=== PATIENT | female | born 1950 | race Caucasian/White ===

== ENCOUNTER 2018-04-22 11:36 | Outpatient (CLI) | payer MEDICARE, BC ==
[~2018-04-22] VITALS: Ht 167.6 cm; Wt 97.7 kg
--- NOTE | ~2018-04-22 | HEMODYNAMI ---
PATIENT:SUSANNE GUTIERREZ MEDICAL RECORD: [id number] : 46 LOCATION:[facility] ADMISSION DATE: 04/22/18 Generatedon:04/22/201814:33 Patient name: SUSANNE GUTIERREZ Patient #: [id number] SSN: : 1950 Date of study: 04/22/2018 Page: Of Hemodynamic Procedure Report Patient Data Patient Demographics Procedure consent was obtained First Name: SUSANNE Gender: Female Last Name: BRENDA : 1950 Patient #: [id number] Age: 67 year(s) Race: Unknown Additional ID: [id number] Contact details [address]: [address] [place] [address] [place] State: [place] City: [place] Zip code: [address] Admission Admission Data Admission Date: 04/22/2018 Admission Time: 11:36 Procedure Procedure Types Cath Procedure Diagnostic Procedure LHC LHC w/Coronaries Sedation Charges Moderate Sedation up to 30 minutes PCI Procedure Coronary Stent Coronary Stent Initial Procedure Description Procedure Date Procedure Date: 04/22/2018 Procedure Start Time: 13:49 Procedure End Time: 14:24 Procedure Staff Name Function Merritt Lau MD Performing Physician Judit Real RT Monitor Hiral Garcia RT Scrub Dave Harris RN Nurse Procedure Data Cath Procedure Fluoroscopy Diagnostic fluoroscopy Total fluoroscopy Time: time: 10.6 min 10.6 min Diagnostic fluoroscopy Total fluoroscopy dose: dose: 1775 mGy 1775 mGy Contrast Material Contrast Material Type Amount (ml) Isovue 300 151 Entry Location Entry Primary Successful Side Size Upsize Upsize Entry Closure Succes sful Closure Location (Fr) 1 (Fr) 2 (Fr) Remarks Device Remarks Femoral Right 5 Fr 6 Fr Exoseal artery Short Estimated blood loss: 5 ml Procedure Complications No complications Procedure Medications Medication Administration Route Dosage Oxygen etCO2 Nasal cannula 2 l/min Lidocaine 2% added to field 20 Heparin Flush Bag added to field 2 bags (1000units/500ml NS) 0.9% NaCl I.V. 100 ml/hr Versed I.V. 1 mg Fentanyl I.V. 50 mcg Versed I.V. 1 mg Fentanyl I.V. 50 mcg Fentanyl I.V. 50 mcg Heparin Bolus I.V. 01222 units Versed I.V. 1 mg Fentanyl I.V. 50 mcg Plavix P.O. 75 mg Hemodynamics Rest Heart Rate: 77 (bpm) Pressure Samples Time Site Value (mmHg) Purpose Heart Use Rate(bpm) 14:00 LV 123/9,5 Snapshot 71 Gradients Valve Time Site Site Mean SEP/DFP Peak To Heart Use 1 2 (mmHg) (sec/min) Peak Rate (mmHg) (bpm) Aortic 14:00 LV AO 73 Snapshots Pre Cath Intra NCS Post Cath Vital Signs Time Heart Resp SPO2 etCO2 NIBP (mmHg) Rhythm Pain Sedation Rate (ipm) (%) (mmHg) Status Level (bpm) 13:37:24 68 13 99 0 165/75(123) NSR 0 (11) 10(A) , No pain 13:41:50 68 27 95 38.9 155/75(126) NSR 0 (11) 10(A) , No pain 13:46:14 70 11 98 29.9 141/60(110) NSR 0 (11) 10(A) , No pain 13:50:32 74 13 98 125/75(92) NSR 0 (11) 10(A) , No pain 13:54:48 74 19 98 139/65(103) NSR 0 (11) 9(A) , No pain 13:59:06 72 27 97 120/62(87) NSR 0 (11) 9(A) , No pain 14:03:20 75 17 96 118/69(109) NSR 0 (11) 9(A) , No pain 14:08:28 76 20 97 118/61(85) NSR 0 (11) 9(A) , No pain 14:12:46 77 22 97 108/56(98) NSR 0 (11) 9(A) , No pain 14:17:51 84 25 100 150/66(107) NSR 0 (11) 9(A) , No pain 14:22:09 78 19 99 136/66(94) NSR 0 (11) 9(A) , No pain 14:27:59 82 20 100 146/72(119) NSR 0 (11) 10(A) , No pain Medications Time Medication Route Dose Verified Delivered Reason Note s Effectiveness by by 13:35:45 Oxygen etCO2 2 Merritt Buffie used for Nasal l/min Amaury Harris RN procedure cannula 13:35:52 Lidocaine 2% added 20ml Merritt Merritt for local to vial Amaury Lau MD anesthetic field 13:35:57 Heparin Flush added 2 bags Merritt Merritt used for Bag to Amaury Lau MD procedure (1000units/500ml field NS) 13:36:07 0.9% NaCl I.V. 100 Merritt Buffie Per physician ml/hr Amaury Harris RN 13:46:46 Versed I.V. 1 mg Merritt Buffie for sedation Amaury Harris RN 13:46:52 Fentanyl I.V. 50 mcg Merritt Buffie for sedation Amaury Harris RN 13:51:50 Versed I.V. 1 mg Merritt Buffie for sedation Amaury Harris RN 13:51:53 Fentanyl I.V. 50 mcg Merritt Buffie for sedation Amaury Harris RN 14:00:38 Fentanyl I.V. 50 mcg Merritt Buffie for sedation Amaury Harris RN 14:06:54 Heparin Bolus I.V. 10,000 Merritt Buffie for veri fied units Amaury Harris RN anticoagulation with dr lau 14:16:17 Versed I.V. 1 mg Merritt Buffie for sedation Amaury Harris RN 14:16:20 Fentanyl I.V. 50 mcg Merritt Buffie for sedation Amaury Harris RN 14:26:10 Plavix P.O. 75 mg Merritt Buffie for Amaury Harris RN antiplatelet therapy Procedure Log Time Note 13:28:34 Diagnostic Cath Status : Elective 13:28:50 Hiral Garcia RT(R) sent for patient. Start room use. 13:28:51 Time tracking: Regular hours (M-F 7:00 - 5:00) 13:28:56 Plan of Care:Hemodynamics will remain stable., Cardiac rhythm will remain stable., Comfort level will be maintained., Respiratory function will remain adequate., Patient/ family verbilizes understanding of procedure., Procedure tolerated without complication., Recovers from procedure without complications.. 13:29:50 Patient received from Pre/Post Procedure Room to [facility] 2 Alert and oriented. Tansferred to table in Supine position. 13:29:51 Warm blankets applied, and wilberto hugger turned on for patient comfort. 13:29:51 Correct patient and procedure confirmed by team. 13:29:52 Signed procedure consent form obtained from patient. 13:29:53 ECG and BP/O2 sat monitors applied to patient. 13:35:45 Oxygen 2 l/min etCO2 Nasal cannula was administered by Dave Harris RN; used for procedure; 13:35:52 Lidocaine 2% 20ml vial added to field was administered by Merritt Lau MD; for local anesthetic; 13:35:57 Heparin Flush Bag (1000units/500ml NS) 2 bags added to field was administered by Merritt Lau MD; used for procedure; 13:36:07 0.9% NaCl 100 ml/hr I.V. was administered by Dave Harris RN; Per physician; 13:36:10 Vital chart was started 13:39:24 Baseline sample Acquired. 13:39:44 Baseline sample Acquired. 13:39:49 Rhythm: sinus rhythm 13:39:50 Full Disclosure recording started 13:39:56 H&P Date Dictated: 04/22/2018 Within 30 days and on chart., H&P Addendum completed by physician on day of procedure. (MUST COMPLETE FOR ALL OUTPATIENTS). 13:39:58 Pre-procedure instructions explained to patient. 13:39:58 Pre-op teaching completed and patient verbalized understanding. 13:39:59 Family in waiting room. 13:40:01 Patient NPO since Midnight. 13:40:03 Is the patient allergic to Iodine/contrast media? No. 13:40:04 Was the patient premedicated? No 13:40:04 Is patient on blood thinner?No 13:40:29 Patient diabetic? Yes. 13:40:31 If diabetic: On Metformin? Yes 13:40:35 If on Metformin: Last Dose? 04/21/2018 13:40:38 Previous problem with sedation/anesthesia? No ? 13:40:40 Snore? Yes 13:40:40 Sleep apnea? No 13:40:41 Deviated septum? No 13:40:47 Opens mouth fully? Yes 13:40:48 Sticks out tongue? Yes 13:41:01 Airway obstruction? Yes bronchitis occasionally 13:41:19 Dentures? No ? 13:41:23 Pre procedure: right dorsailis pedis pulse 2+ Normal; easily identifiable; not easily obliterated 13:41:24 Pre procedure: left dorsailis pedis pulse 2+ Normal; easily identifiable; not easily obliterated 13:41:26 Patient pain scale 0/10 ?. 13:42:03 IV patent on arrival in left antecubital with 0.9% NaCl at [facility]. 13:42:05 Lab results completed and on chart. 13:42:10 Right Radial & Right Groin area was prepped with chlora-prep and draped in sterile fashion 13:42:11 Alarms reviewed by R. N. 13:42:11 Sharps counted by scrub and verified by R.N. 13:46:35 Physician arrived 13:46:36 --------ALL STOP TIME OUT------ 13:46:36 Final Timeout: patient, procedure, and site verified with staff and physician. All members of the team are in agreement. 13:46:38 Right Radial & Right Groin site verified by team. 13:46:41 Physical assessment completed. ASA score P 2 - A patient with mild systemic disease as per Merritt Lau MD. 13:46:44 Sedation plan: IV Moderate Sedation Medication:Versed, Fentanyl 13:46:46 Versed 1 mg I.V. was administered by Dave Harris RN; for sedation; 13:46:52 Fentanyl 50 mcg I.V. was administered by Dave Harris RN; for sedation; 13:46:52 Use device set Radial Dx or PCI 13:46:53 ACIST Syringe (88169) opened to sterile field. 13:46:54 Medline Cath Pack ([id number]) opened to sterile field. 13:46:54 Bag Decanter () opened to sterile field. 13:46:55 DIAGNOSTIC WIRE .035 260cm J wire (737803) opened to sterile field. 13:46:55 ACIST Hand Control (46351) opened to sterile field. 13:46:56 ACIST Manifold (65079) opened to sterile field. 13:46:56 Tegaderm 4 x 4 (1626W) opened to sterile field. 13:49:14 Procedure started. 13:49:28 Local anesthetic to right femoral artery with Lidocaine 2% by Merritt Lau MD.INITIAL ACCESS ONLY 13:49:40 A 5 Fr sheath was inserted into the Right Femoral artery 13:50:36 SHEATH 5Fr Prelude ([id number]) opened to sterile field. 13:50:44 DIAGNOSTIC Multipack 5Fr catheter set (YC7687) opened to sterile field. 13:51:04 5 Fr jl 4 guide catheter was inserted over the wire 13:51:50 Versed 1 mg I.V. was administered by Dave Harris RN; for sedation; 13:51:53 Fentanyl 50 mcg I.V. was administered by Dave Harris RN; for sedation; 13:53:02 LCA angiography performed. 13:53:05 Injector settings: Ml/sec: 3, Volume: 6, 13:55:14 Catheter removed. 13:55:21 5 Fr 3drc guide catheter was inserted over the wire 13:56:45 Catheter removed. unable to cannulate vessel. 13:57:30 GUIDE 5FR AL 1.0 catheter ([id number]) opened to sterile field. 13:58:23 RCA angiography performed. 13:58:26 Injector settings: Ml/sec: 3, Volume: 6, 13:58:40 Catheter removed. 13:59:09 5 Fr pigtail guide catheter was inserted over the wire 14:00:14 LV hemodynamics recorded. 14:00:15 LV gram done using VAZQUEZ 14:00:17 Injector settings: Ml/sec: 5, Volume: 15, 14:00:27 EF : 55 % 14:00:38 Fentanyl 50 mcg I.V. was administered by Dave Harris RN; for sedation; 14:00:40 Catheter removed. 14:02:47 TUBING High Pressure Extension Tubing (Amaury) ([id number]) opened to sterile field. 14:02:48 BMW 300cm [place] 2 J wire ([id number]) opened to sterile field. 14:02:49 INFLATOR Merit BasixCompak (QQ5646) opened to sterile field. 14:02:50 SHEATH 6Fr Prelude ([id number]) opened to sterile field. 14:04:35 GUIDE 6FR XBLAD 3.5 catheter ([id number]) opened to sterile field. 14:04:47 Sheath upsized to a 6 Fr Short. 14:04:55 6 Fr xblad 3.5 guide catheter was inserted over the wire 14:05:00 bmw wire advanced. 14:05:01 Wire advanced across lesion. 14:06:54 Heparin Bolus 10,000 units I.V. was administered by Dave Harris RN; for anticoagulation; verified with dr lau 14:09:23 Inflate balloon Inflation number: 1 A EMERGE OTW 2.5 x 20 balloon ([id number]) was prepped and advanced across the Prox LAD, then inflated to 13 JUAN JOSE for 0:10 (min:sec). 14:10:07 Inflation number: 2 The EMERGE OTW 2.5 x 20 balloon ([id number]) was reinflated across the Prox LAD, to 12 JUAN JOSE for 0:10 (min:sec). 14:11:35 Balloon removed over the wire. 14:14:39 The HEENA OTW 3.0 x 38 stent ([id number]) was advanced then removed because of failure to cross lesion 14:16:17 Versed 1 mg I.V. was administered by Dave Harris RN; for sedation; 14:16:20 Fentanyl 50 mcg I.V. was administered by Dave Harris RN; for sedation; 14:17:06 Inflation number: 3 The EMERGE OTW 2.5 x 20 balloon ([id number]) was reinflated across the Prox LAD, to 10 JUAN JOSE for 0:10 (min:sec). 14:17:11 Balloon removed over the wire. 14:20:08 Place stent Inflation Number: 4 A HEENA OTW 3.0 x 38 stent ([id number]) was prepped and advanced across the Prox LAD. The stent was deployed at 10 JUAN JOSE for 0:10 (min:sec). 14:22:05 Stent catheter was removed intact over wire. 14:22:06 Wire removed. 14:22:07 Guide catheter removed. 14:22:21 EXOSEAL 6Fr (EX600) opened to sterile field. 14:22:33 Sheath removed intact; hemostasis achieved with Exoseal to the Right Femoral artery. 14:22:35 Procedure ended.(Physican Out) 14:22:53 Fluoroscopy time 10.60 minutes. 14:22:59 Fluoroscopy dose: 1775 mGy 14:22:59 Flurop Dose total: 1775 14:23:29 Contrast amount:Isovue 300 151ml. 14:23:31 Sharps counted by scrub and verified by R.N. 14:23:33 Insertion/operative site no bleeding no hematoma. 14:23:36 Post-op/insertion site Right Femoral artery dressed using a 4 x 4 and Tegaderm. 14:23:38 Post right femoral artery:stable 14:23:40 Post Procedure Pulses reassessed and unchanged 14:23:42 Post procedure rhythm: unchanged. 14:23:45 Estimated blood loss: 5 ml 14:23:46 Post procedure instruction explained to patient.Patient verbalizes understanding. 14:23:46 Patient needs reinforcement of post procedure teaching. 14:24:05 Procedure type changed to Cath procedure, Diagnostic procedure, LHC, LHC w/Coronaries, Sedation Charges, Moderate Sedation up to 30 minutes, PCI procedure, Coronary Stent, Coronary Stent Initial 14:24:06 Procedure and supply charges have been captured, reviewed, submitted and are correct. 14:24:10 Procedure Complication : No complications 14:24:27 Vital chart was stopped 14:24:27 See physician's report for complete and final results. 14:24:34 Report given to Pre/Post Procedure Room. 14:24:36 Patient transfered to Pre/Post Procedure Room with Stretcher. 14:24:39 Procedure ended. 14:24:39 Full Disclosure recording stopped 14:24:56 ACC-PCI Only Patient was given prescriptions, or instructed by Merritt Lau MD to start/continue the following medications upon discharge: Plavix 14:24:57 End room use (Document Last) 14:26:10 Plavix 75 mg P.O. was administered by Dave Harris RN; for antiplatelet therapy; Intervention Summary Intervention Notes Time ActionType Lesion and Equipment Action# Pressure Duration Attributes Used 14:09:23 Inflate Prox LAD EMERGE OTW 1 13 00:10 balloon 2.5 x 20 balloon ([id number]) 14:10:07 Reinflate Prox LAD EMERGE OTW 2 12 00:10 balloon 2.5 x 20 balloon ([id number]) 14:14:39 Discard HEENA OTW 3.0 Stent x 38 stent ([id number]) 14:17:06 Reinflate Prox LAD EMERGE OTW 3 10 00:10 balloon 2.5 x 20 balloon ([id number]) 14:20:08 Place stent Prox LAD HEENA OTW 3.0 4 10 00:10 x 38 stent ([id number]) Device Usage Item Name Manufacture Quantity Catalog Number Hospital Part Current M inimal Lot# / Charge Number Stock Stock Serial# Code ACIST Syringe Acist 1 22231 851402 129303 710606 2 0 (19351) Medical Systems Inc Medline Cath Cardinal 1 [id number] 541612 12501 959107 5 Pack Health ([id number]) Bag Decanter Microtek 1 2001S 954958 83237 552121 5 (2001S) Medical Inc. DIAGNOSTIC St Ariel 1 772336 828516 209277 750299 3 0 WIRE .035 260cm J wire (939964) ACIST Hand Acist 1 59175 537074 004129 371779 5 Control Medical (81279) Systems Inc ACIST Acist 1 11326 540451 776741 045787 5 Manifold Medical (31756) Systems Inc Tegaderm 4 x 3M 1 1626W 970937 370503 605291 5 4 (1626W) SHEATH 5Fr Merit 1 [id number] 377505 697870 325062 5 Prelude Medical ([id number]) DIAGNOSTIC Cardinal 1 JC2443 239599 45527 190634 3 0 Multipack 5Fr Health catheter set (UM0275) GUIDE 5FR AL Medtronic 1 [id number] 487908 815429 860256 1 1.0 catheter (MX5IH36) TUBING High Merit 1 [id number] 723080 52395 965781 1 0 Pressure Medical Extension Tubing (Lau) (FO4719H) BMW 300cm [place] 1 [id number] 606744 208629 923898 5 [place] 2 J Vascular wire ([id number]) INFLATOR Merit 1 UP2768 605223 746445 794311 1 5 Merit Medical BasixCompak (GR1126) SHEATH 6Fr Merit 1 [id number] 682583 995129 703894 5 Prelude Medical ([id number]) GUIDE 6FR Cardinal 1 [id number] 295391 745270 969153 1 0 XBLAD 3.5 Health catheter (67880419) EMERGE OTW [place] 1 [id number] 371003 822893 300455 5 [id number] 2.5 x 20 Scientific balloon ([id number]) HEENA OTW 3.0 Medtronic 1 [id number] 704511 9667058 043429 5 [id number] x 38 stent ([id number]) EXOSEAL 6Fr Cardinal 1 EX600 657710 062926 637999 1 0 (EX600) Health Signature Audit [place] Stage Time Signature Unsigned Intra-Procedure 04/22/2018 Judit Real 2:32:57 PM RT(R) Signatures Monitor : Judit Real RT Signature : Date : Time : [id number] [place] [address]
[2018-04-22 12:29] VITALS: BP 131/71; Ht 167.6 cm; Wt 97.7 kg
[2018-04-22 12:32] LABS: BASOPHILS 0.5 % (0-2); IMMATURE GRANULOCYTES 0.4 % (0-5); LYMPHOCYTES 29.6 % (15-50); MCH 31.8 pg (26.0-34.0); MCHC 34.2 g/dL (31.0-37.0); MCV 92.9 fL (80.0-100.0); MEAN PLATELET VOLUME 9.5 fL (7.4-10.4); MONOCYTES 7.7 % (2-11); NEUTROPHILS 59.8 % (40-80); PLATELET COUNT 332 10x3/uL (130-400); RBC 4.09 10x6/uL (4.00-5.40); WBC 9.1 10x3/uL (4.8-10.8)
[2018-04-22 12:55] LABS: ANION GAP 13.8 mmol/L (8-16); CALCIUM 8.7 mg/dL (8.5-10.1); CARBON DIOXIDE 28.2 mmol/L (21.0-32.0); CREATININE - SERUM 0.9 mg/dL (0.6-1.3)
[2018-04-22] MEDS ORDERED: GLUCOPHAGE1000 MG PO (13:35)
[2018-04-22] MEDS ORDERED: HCTZ25 MG PO (13:36)
[2018-04-22] MEDS ORDERED: PRINIVIL20 MG PO (13:36)
[2018-04-22] MEDS ORDERED: GLIPIZIDE10 MG PO (13:37)
[2018-04-22] MEDS ORDERED: LOPRESSOR25 MG PO (13:40)
[2018-04-22] MEDS ORDERED: PLAVIX75 MG PO (13:41)
== END 2018-04-22 18:30 | disposition home or self-care (01) ==
LOC: D.CATH 11:36
PROVIDERS: Internal Medicine Cardiovascular Disease
DX: I25.119 Atherosclerotic heart disease of native coronary artery with unspecified angina pectoris (principal); Z01.812 Encounter for preprocedural laboratory examination
CPT/HCPCS: 93458; C9600

== ENCOUNTER → 2019-05-25 11:39 | Outpatient (CLI) | payer MEDICARE, BC ==
[2018-04-22 12:29] VITALS: BMI 34.7
[~2019-05-25 11:39] MED LIST: GLIPIZIDE10 MG PO; GLUCOPHAGE1000 MG PO; HCTZ25 MG PO; LOPRESSOR25 MG PO; PLAVIX75 MG PO; PRINIVIL20 MG PO
== END | disposition home or self-care (01) ==
LOC: D.HCCARDIO 11:30 → D.HCCECHO 11:30
PROVIDERS: ATTEND Internal Medicine Cardiovascular Disease
DX: I25.10 Atherosclerotic heart disease of native coronary artery without angina pectoris (principal); R06.00 Dyspnea, unspecified

== ENCOUNTER 2019-06-14 11:33 | Outpatient (CLI) | payer MEDICARE, BC ==
[~2019-06-14] VITALS: Ht 167.6 cm; Wt 95.5 kg
--- NOTE | ~2019-06-14 | HEMODYNAMI ---
PATIENT:SUSANNE GUTIERREZ MEDICAL RECORD: [id number] : 46 LOCATION:[facility] ADMISSION DATE: 06/14/19 Generatedon:06/14/201915:00 Patient name: SUSANNE GUTIERREZ Patient #: [id number] SSN: [id number] : 1950 Date of study: 06/14/2019 Page: Of Hemodynamic Procedure Report Patient Data Patient Demographics Procedure consent was obtained First Name: SUSANNE Gender: Female Last Name: BRENDA : 1950 Patient #: [id number] Age: 68 year(s) Race: SSN: [id number] Additional ID: [id number] Contact details [address]: [address] [place] [address] [place] State: [place] City: [place] Zip code: [address] Admission Admission Data Admission Date: 06/14/2019 Admission Time: 11:33 Room #: [facility] Procedure Procedure Types Cath Procedure Diagnostic Procedure LHC [facility] w/Coronaries Sedation Charges Moderate Sedation up to 30 minutes Procedure Description Procedure Date Procedure Date: 06/14/2019 Procedure Start Time: 14:38 Procedure End Time: 14:58 Procedure Staff Name Function Merritt Rebolledo MD Performing Physician Татьяна Mullins RT Scrub Dave Harris RN Nurse Leatha Clark RT Monitor Marlena Jackson RT Monitor Indication Angina Procedure Data Cath Procedure Fluoroscopy Diagnostic fluoroscopy Total fluoroscopy Time: 2.1 time: 2.1 min min Diagnostic fluoroscopy Total fluoroscopy dose: 571 dose: 571 mGy mGy Contrast Material Contrast Material Type Amount (ml) Isovue 300 74 Entry Location Entry Primary Successful Side Size Upsize Upsize Entry Closure Succes sful Closure Location (Fr) 1 (Fr) 2 (Fr) Remarks Device Remarks Femoral Right 5 Fr Exoseal artery Estimated blood loss: 10 ml Diagnostic catheters Device Type Used For End Catheter Placement MULTIPACK JL 4.0 5Fr Left Coronary catheter Angiography MULTIPACK 3DRC 5Fr Right Coronary catheter Angiography MULTIPACK Pigtail 5 Fr LV Angiography catheter Procedure Complications No complications Procedure Medications Medication Administration Route Dosage Oxygen etCO2 Nasal cannula 2 l/min Lidocaine 2% added to field 20 Heparin Flush Bag added to field 2 bags (1000units/500ml NS) 0.9% NaCl I.V. 100 ml/hr Versed I.V. 1 mg Fentanyl I.V. 50 mcg Versed I.V. 1 mg Fentanyl I.V. 50 mcg Versed I.V. 1 mg Fentanyl I.V. 50 mcg Hemodynamics Rest Heart Rate: 57 (bpm) Pressure Samples Time Site Value (mmHg) Purpose Heart Use Rate(bpm) 14:48 LV 92/3,13 Snapshot 58 14:48 AO 93/42(59) Pullback 63 14:48 LV 99/6,21 Pullback 63 Gradients Valve Time Site 1 Site 2 Mean SEP/DFP Peak To Heart Use (mmHg) (sec/min) Peak Rate (mmHg) (bpm) Aortic 14:48 LV AO 11 19 6 63 99/6,21 93/42(59) Calculations Valve P-P Mean Valve Index Valve Source Name Gradient Area Flow (cm2) Aortic 6 11 6 11 Snapshots Pre Cath Intra NCS Post Cath Vital Signs Time Heart Resp SPO2 etCO2 NIBP (mmHg) Rhythm Pain Sedation Rate (ipm) (%) (mmHg) Status Level (bpm) 14:20:20 59 26 98 0 135/67(111) NSR 0 (11) 10(A) , No pain 14:24:31 58 19 95 39.9 97/57(86) NSR 0 (11) 10(A) , No pain 14:28:43 64 11 99 42.1 109/53(82) NSR 0 (11) 10(A) , No pain 14:32:53 59 14 97 38.4 80/52(75) NSR 0 (11) 10(A) , No pain 14:36:55 61 18 98 41.4 85/63(76) NSR 0 (11) 10(A) , No pain 14:41:05 59 16 98 42.1 88/47(61) NSR 0 (11) 9(A) , No pain 14:45:13 64 16 99 42.9 94/54(86) NSR 0 (11) 9(A) , No pain 14:49:26 64 15 99 42.9 96/43(63) NSR 0 (11) 9(A) , No pain 14:53:38 64 14 100 42.1 96/52(73) NSR 0 (11) 10(A) , No pain 14:57:50 62 18 100 42.1 97/45(80) NSR 0 (11) 10(A) , No pain Medications Time Medication Route Dose Verified Delivered Reason Notes Eff ectiveness by by 14:27:28 Oxygen etCO2 2 Merritt Buffie used for Nasal l/min Amaury Harris RN procedure cannula 14:27:35 Lidocaine 2% added 20ml Merritt Merritt for local to vial Amaury Rebolledo MD anesthetic field 14:27:41 Heparin Flush added 2 Merritt Merritt used for Bag to bags Amaury Rebolledo MD procedure (1000units/500ml field NS) 14:27:49 0.9% NaCl I.V. 100 Merritt Buffie Per ml/hr Amaury Harris RN physician 14:28:05 Versed I.V. 1 mg Merritt Buffie for Amaury Harris RN sedation 14:28:12 Fentanyl I.V. 50 Merritt Buffie for mcg Amaury Harris RN sedation 14:30:33 Versed I.V. 1 mg Merritt Buffie for Amaury Harris RN sedation 14:30:37 Fentanyl I.V. 50 Merritt Buffie for mcg Amaury Harris RN sedation 14:41:01 Versed I.V. 1 mg Merritt Buffie for Amaury Harris RN sedation 14:41:05 Fentanyl I.V. 50 Merritt Buffie for mcg Amaury Harris RN sedation Procedure Log Time Note 14:00:53 Dave Harris RN sent for patient. Start room use. 14:07:27 Informed consent obtained and on chart 14:18:14 Diagnostic Cath Status : Elective 14:18:39 Indication : Angina 14:19:01 Time tracking: Regular hours (M-F 7:00 - 5:00) 14:19:05 Plan of Care:Hemodynamics will remain stable., Cardiac rhythm will remain stable., Comfort level will be maintained., Respiratory function will remain adequate., Patient/ family verbilizes understanding of procedure., Procedure tolerated without complication., Recovers from procedure without complications.. 14:19:10 Patient received from Pre/Post Procedure Room to [facility] 1 Alert and oriented. Tansferred to table in Supine position. 14:19:11 Warm blankets applied, and wilberto hugger turned on for patient comfort. 14:19:11 Correct patient and procedure confirmed by team. 14:19:12 ECG and BP/O2 sat monitors applied to patient. 14:19:13 Vital chart was started 14:19:14 Baseline sample Acquired. 14:19:18 Rhythm: sinus rhythm 14:19:19 Full Disclosure recording started 14:19:23 H&P Date Dictated: 06/14/2019 Within 30 days and on chart., H&P Addendum completed by physician on day of procedure. (MUST COMPLETE FOR ALL OUTPATIENTS). 14:19:25 Pre-procedure instructions explained to patient. 14:19:25 Pre-op teaching completed and patient verbalized understanding. 14:19:27 Family in waiting room. 14:19:29 Patient NPO since Midnight. 14:19:31 Is the patient allergic to Iodine/contrast media? No. 14:19:41 Was the patient premedicated? No 14:19:42 Is patient on blood thinner?Yes 14:19:46 ACC The patient was administered the following blood thiners within the last 24 hours: ACCPlavix 14:19:48 Patient diabetic? Yes. 14:19:49 If diabetic: On Metformin? Yes 14:19:52 If on Metformin: Last Dose? 06/13/2019 14:19:58 Previous problem with sedation/anesthesia? No ? 14:20:00 Snore? Yes 14:20:01 Sleep apnea? No 14:20:02 Deviated septum? No 14:20:02 Opens mouth fully? Yes 14:20:03 Sticks out tongue? Yes 14:20:05 Airway obstruction? No ? 14:20:08 Dentures? No ? 14:20:11 Pre procedure: right dorsailis pedis pulse 2+ Normal; easily identifiable; not easily obliterated 14:20:13 Pre procedure: left dorsailis pedis pulse 2+ Normal; easily identifiable; not easily obliterated 14:20:23 IV patent on arrival in left forearm with 0.9% NaCl at KVO. 14:21:00 Lab results completed and on chart. 14:21:06 Right groin area was prepped with chlora-prep and draped in sterile fashion 14:: Alarms reviewed by RDes N. 14:: Sharps counted by scrub and verified by R.N. 14:21: Physician arrived 14:21: --------ALL STOP TIME OUT------ 14:21:11 Final Timeout: patient, procedure, and site verified with staff and physician. All members of the team are in agreement. 14:21:13 Right groin site verified by team. 14:21:17 Fire Safety Assessment: A--An alcohol-based skin anteseptic being used preoperatively., C--Open oxygen or nitrous oxide is being used., D--An ESU, laser, or fiber-optic light is being used. 14:21:21 Physical assessment completed. ASA score P 2 - A patient with mild systemic disease as per Merritt Rebolledo MD. 14:27:16 3b) 30-44 Moderately reduced kidney function. 14:27:28 Oxygen 2 l/min etCO2 Nasal cannula was administered by Dave Harris RN; used for procedure; Verbal order read back and verified. 14:27:35 Lidocaine 2% 20ml vial added to field was administered by Merritt Rebolledo MD; for local anesthetic; Verbal order read back and verified. 14:27:41 Heparin Flush Bag (1000units/500ml NS) 2 bags added to field was administered by Merritt Rebolledo MD; used for procedure; Verbal order read back and verified. 14:27:48 Maximum allowable contrast dose (3.7 X eGFR X 0.75)108 ml. 14:27:49 0.9% NaCl 100 ml/hr I.V. was administered by Dave Harris RN; Per physician; Verbal order read back and verified. 14:27:53 Sedation plan: IV Moderate Sedation Medication:Versed, Fentanyl 14:28:05 Versed 1 mg I.V. was administered by Dave Harris RN; for sedation; Verbal order read back and verified. 14:28:12 Fentanyl 50 mcg I.V. was administered by Dave Harris RN; for sedation; Verbal order read back and verified. 14:28:30 Use device set Femoral Dx 14:28:31 ACIST Syringe (18753) opened to sterile field. 14:28:32 Bag Decanter (2002S) opened to sterile field. 14:28:32 Medline Cath Pack ([id number]) opened to sterile field. 14:28:33 ACIST Hand Control (21934) opened to sterile field. 14:28:34 ACIST Manifold (29530) opened to sterile field. 14:28:34 DIAGNOSTIC Multipack 5Fr catheter set (EW0628) opened to sterile field. 14:28:35 Tegaderm 4 x 4 (1626W) opened to sterile field. 14:28:36 SHEATH 5FR Jefferson (ZZR385) opened to sterile field. 14:28:36 EMERALD Guide Wire (423-651) opened to sterile field. 14:29:28 ACC Patient presents with Stable Angina CCS Anginal Class 2--Slight limitation of ordinary activity. 14:29:33 Procedure Status Elective Heart Cath (OP). 14:30:33 Versed 1 mg I.V. was administered by Dave Harris RN; for sedation; Verbal order read back and verified. 14:30:37 Fentanyl 50 mcg I.V. was administered by Dave Harris RN; for sedation; Verbal order read back and verified. 14:32:18 Baseline sample Acquired. 14:37:59 Zero performed for pressure channel P1 14:38:12 Procedure started. 14:38:20 Local anesthetic to right femoral artery with Lidocaine 2% by Merritt Rebolledo MD.INITIAL ACCESS ONLY 14:40:43 A 5 Fr sheath was inserted into the Right Femoral artery 14:41:01 Versed 1 mg I.V. was administered by Dave Harris RN; for sedation; Verbal order read back and verified. 14:41:03 A MULTIPACK JL 4.0 5Fr catheter was advanced over the wire and used for Left Coronary Angiography. 14:41:05 Fentanyl 50 mcg I.V. was administered by Dave Harris RN; for sedation; Verbal order read back and verified. 14:42:17 LCA angiography performed. 14:42:35 Injector settings: Ml/sec: 3, Volume: 5, 14:44:42 Catheter exchanged over wire. 14:44:51 A MULTIPACK 3DRC 5Fr catheter was advanced over the wire and used for Right Coronary Angiography. 14:45:59 RCA angiography performed. 14:46:10 ACCDominant side:Right 14:46:21 Injector settings: Ml/sec: 3, Volume: 5, 14:46:43 Catheter exchanged over wire. 14:46:53 A MULTIPACK Pigtail 5 Fr catheter was advanced over the wire and used for LV Angiography. 14:48:16 LV gram done using VAZQUEZ 14:48:21 Injector settings: Ml/sec: 10, Volume: 20, 14:48:24 LV hemodynamics recorded. 14:48:47 EF : 60 % 14:52:12 Catheter removed. 14:52:19 EXOSEAL 5Fr (EX500) opened to sterile field. 14:53:27 Sheath removed intact; hemostasis achieved with Exoseal to the Right Femoral artery. 14:53:47 Procedure ended.(Physican Out) 14:54:02 Fluoroscopy time 02.10 minutes. 14:54:09 Flurop Dose total: 571 14:54:09 Fluoroscopy dose: 571 mGy 14:54:17 Dose Area Product 81363 mGy/cm. 14:54:24 Contrast amount:Isovue 300 74ml. 14:54:26 Maximum allowable dose exceeded? No. 14:54:28 Sharps counted by scrub and verified by R.N. 14:54:36 Insertion/operative site no bleeding no hematoma. 14:54:55 Post-op/insertion site Right Femoral artery dressed using a 4 x 4 and Tegaderm. 14:55:00 Post Procedure Pulses reassessed and unchanged 14:55:10 Post-procedure physical assessment completed. ASA score P 2 - A patient with mild systemic disease as per Merritt Rebolledo MD. 14:55:48 Post procedure rhythm: unchanged. 14:55:53 Estimated blood loss: 10 ml 14:55:59 Post procedure instruction explained to patient.Patient verbalizes understanding. 14:56:02 Patient needs reinforcement of post procedure teaching. 14:56:40 Procedure type changed to Cath procedure, Diagnostic procedure, LHC, LHC w/Coronaries, Sedation Charges, Moderate Sedation up to 30 minutes 14:56:45 Procedure and supply charges have been captured, reviewed, submitted and are correct. 14:57:35 Procedure Complication : No complications 14:57:39 Vital chart was stopped 14:57:40 See physician's report for complete and final results. 14:57:42 Report given to Pre/Post Procedure Room. 14:57:56 Patient transfered to Pre/Post Procedure Room with Stretcher. 14:58:00 Procedure ended. 14:58:00 Full Disclosure recording stopped 14:58:15 End room use (Document Last) Device Usage Item Name Manufacture Quantity Catalog Hospital Part Current Minimal L ot# / Number Charge Number Stock Stock Serial# Code ACIST Acist 1 60824 623739 954207 462468 20 Syringe Medical (40590) Systems Inc Bag Microtek 1 2001S 027826 98850 553503 5 Decanter Medical Inc. (2001S) Medline Medline 1 [id number] 902899 95543 472512 5 Cath Pack ([id number]) ACIST Hand Acist 1 17442 950176 191564 928218 5 Control Medical (34409) Systems Inc ACIST Acist 1 87996 973364 820824 400911 5 Manifold Medical (05371) Systems Inc DIAGNOSTIC Cardinal 1 [id number] 639199 34653 557514 30 Multipack Health 5Fr catheter set (ND0164) Tegaderm 4 3M 1 1626W 739440 163463 744714 5 x 4 (1626W) SHEATH 5FR Terumo 1 JYA535 977878 197847 980907 5 Jefferson (MZZ137) EMERALD Cardinal 1 502-455 873155 176972 486583 5 Guide Wire Health (502-455) MULTIPACK Cardinal 1 803827 5 JL 4.0 5Fr Health catheter MULTIPACK Cardinal 1 543640 5 3DRC 5Fr Health catheter MULTIPACK Cardinal 1 659575 5 Pigtail 5 Health Fr catheter EXOSEAL 5Fr Cardinal 1 EX500 813987 639326 078615 10 (EX500) Health Signature Audit [place] Stage Time Signature Unsigned Intra-Procedure 06/14/2019 Marlena 2:59:07 PM Manuel RT(R) (CV) Intra-Procedure 06/14/2019 Dave Harris RN 2:59:46 PM Intra-Procedure 06/14/2019 Merritt Rebolledo MD 3:00:[address] [address]
[2019-06-14] MEDS ORDERED: ONGLYZA5 MG PO (12:14)
[2019-06-14] MEDS ORDERED: LIPITOR80 MG PO (12:14)
[2019-06-14] MEDS ORDERED: LASIX20 MG PO (12:15)
[2019-06-14] MEDS ORDERED: VITAMIN D3400 UNI1 PO (12:16)
[2019-06-14] MEDS ORDERED: ULTRAM50 MG PO (12:16)
[2019-06-14] MEDS ORDERED: CO Q-10100 MG PO (12:17)
[2019-06-14 12:32] VITALS: BP 149/57; Ht 167.6 cm; Wt 95.5 kg
[2019-06-14 12:45] LABS: BASOPHILS 0.5 % (0-2); EOSINOPHILS 1.9 % (0-7); HEMATOCRIT 38.2 % (36.0-48.0); HEMOGLOBIN 12.8 g/dL (12-16); IMMATURE GRANULOCYTES 0.2 % (0-5); LYMPHOCYTES 33.5 % (15-50); MCH 31.6 pg (26.0-34.0); MCHC 33.5 g/dL (31.0-37.0); MCV 94.3 fL (80.0-100.0); MEAN PLATELET VOLUME 9.5 fL (7.4-10.4); MONOCYTES 5.2 % (2-11); NEUTROPHILS 58.7 % (40-80); PLATELET COUNT 367 10x3/uL (130-400); RBC 4.05 10x6/uL (4.00-5.40); RDW 12.1 % (11.5-14.5); WBC 8.6 10x3/uL (4.8-10.8)
[2019-06-14 13:01] LABS: ANION GAP 13.9 mmol/L (8-16); CALCIUM 8.9 mg/dL (8.5-10.1); CARBON DIOXIDE 27.2 mmol/L (21.0-32.0); CHOL - HDL RATIO 3.6 ratio (2.3-4.1); CREATININE - SERUM 1.4 mg/dL (0.6-1.3); LDL-HDL RATIO 1.1 ratio (1.5-3.5); POTASSIUM - SERUM 4.1 mmol/L (3.5-5.1)
--- NOTE | 2019-06-14 15:05 | NUR ---
PT RECEIVED BACK TO ROOM 3 VIA STRETCHER FROM RENDERER FOR RECOVERY. PT AWAKE BUT DROWSY, RESPONDS TO VERBAL STIMULI. PT PLACED ON CARDIAC MONITORS, O2 PLACED VIA NC AT 2L/NC. HR NSR RATE 66, BP 133/64, RR 12, SAT 99 ON 2L/NC. R GROIN W 5FR EXOCELE, DRESSING CDI NO BLEEDING OR HEMATOMA NOTED. LEG PINK AND WARM, PEDAL PULSES PALPABLE. PT INSTRUCTED TO KEEP HEAD ON PILLOW AND LEG STRAIGHT, SHE VERBALIZED UNDERSTANDING. DR WOOD AT BEDSIDE TALKING W PT AND REGARDING PLAN OF CARE. PT DENIES PAIN OR DISCOMFORT. CALL LIGHT IN REACH
--- NOTE | 2019-06-14 15:30 | NUR ---
PT RESTING COMFORTABLY, DENIES PAIN OR NEEDS. R GROIN DRESSING CDI NO BLEEDING OR HEMATOMA NOTED. PEDAL PULSES PALPABLE. VSS. CALL LIGHT IN REACH, REMAINS AT BS.
--- NOTE | 2019-06-14 16:15 | NUR ---
R GROIN SOFT, DRESSING CDI NO BLEEDING OR HEMATOMA NOTED. LEG PINK AND WARM, PEDAL PULSES PALPABLE. VSS. HOB ELEVATED SLIGHTLY, SANDWICH TRAY SERVED. PT DENIES PAIN OR NEEDS. CALL LIGHT REMAINS IN REACH.
--- NOTE | 2019-06-14 16:45 | NUR ---
PT SITTING UP W/O COMPLAINTS. R GROIN REMAINS SOFT, NO BLEEDING OR SWELLING NOTED TO OR AROUND SITE. VSS. CALL LIGHT IN REACH. TOLERATING PO FOOD AND FLUIDS
--- NOTE | 2019-06-14 17:15 | NUR ---
DISCHARGE INSTRUCTIONS REVIEWED W PT AND , BOTH VERBALIZED UNDERSTANDING. PT INSTRUCTED ON IMPORTANCE OF TAKING HER DOSE OF PLAVIX TODAY, SHE STATES THAT SHE IS OUT OF REFILLS. REFILL CALLED PER ORDER TO [facility] IN [place]. PT STATES SHE WILL HAVE GRAND DAUGHTER PICK IT UP AND WILL TAKE WHEN GETS HOME. IV REMOVED W CATH INTACT, MONITORS AND O2 REMOVED. PT UP TO DRESS FOR DISCHARGE. 1720 PT AMBULATED TO BR, VOIDING W/O DIFFICULITY
--- NOTE | 2019-06-14 17:27 | NUR ---
PT DISCHARGED VIA WC TO WAITING IN PRIVATE VEHICLE. PT HAS ALL BELONGINGS AND DISCHARGE INSTRUCTIONS.
== END 2019-06-14 17:30 | disposition home or self-care (01) ==
LOC: D.CATH 11:33 → D.CLR 12:00 → D.CATH 14:00
PROVIDERS: ATTEND Internal Medicine Cardiovascular Disease
DX: I25.10 Atherosclerotic heart disease of native coronary artery without angina pectoris (principal); R94.30 Abnormal result of cardiovascular function study, unspecified

== ENCOUNTER 2019-06-16 12:00 | Inpatient (IN) | payer MEDICARE, BC ==
[~2019-06-16] VITALS: Ht 167.6 cm; Wt 100.7 kg
[~2019-06-16 12:00] MED LIST changes: +CO Q-10100 MG PO; +LASIX20 MG PO; +LIPITOR80 MG PO; +ONGLYZA5 MG PO; +ULTRAM50 MG PO; +VITAMIN D3400 UNI1 PO
[2019-06-21] MEDS ORDERED: JARDIANCE10 MG PO (12:39)
[2019-06-21 14:30] LABS: APPEARANCE CLEAR (CLEAR); BILIRUBIN NEGATIVE (NEGATIVE); COLOR YELLOW (YELLOW); GLUCOSE 1000 mg/dL (NEGATIVE); KETONE NEGATIVE (NEGATIVE); NITRITE NEGATIVE (NEGATIVE); PROTEIN NEGATIVE (NEGATIVE); SPECIFIC GRAVITY 1.015 (1.005-1.020); UROBILINOGEN NORMAL (NORMAL)
[2019-06-21 14:32] LABS: BASOPHILS 0.3 % (0-2); EOSINOPHILS 1.4 % (0-7); HEMATOCRIT 36.5 % (36.0-48.0); IMMATURE GRANULOCYTES 0.3 % (0-5); MCH 31.3 pg (26.0-34.0); MCHC 32.9 g/dL (31.0-37.0); MCV 95.1 fL (80.0-100.0); MEAN PLATELET VOLUME 9.7 fL (7.4-10.4); MONOCYTES 7.7 % (2-11); NEUTROPHILS 59.3 % (40-80); PLATELET COUNT 346 10x3/uL (130-400); RBC 3.84 10x6/uL (4.00-5.40); RDW 12.3 % (11.5-14.5); WBC 7.8 10x3/uL (4.8-10.8)
[2019-06-21 14:39] LABS: APTT 29.1 SECONDS (22.8-39.4); INR 0.98 (0.85-1.17); PROTIME 12.5 SECONDS (11.6-15.0)
[2019-06-21 14:41] LABS: ALBUMIN 3.6 g/dL (3.4-5.0); ANION GAP 12.9 mmol/L (8-16); BILIRUBIN - TOTAL 0.45 mg/dL (0.2-1.3); CALCIUM 8.6 mg/dL (8.5-10.1); CARBON DIOXIDE 28.9 mmol/L (21.0-32.0); CREATININE - SERUM 1.4 mg/dL (0.6-1.3); PHOSPHOROUS 3.9 mg/dL (2.5-4.9); POTASSIUM - SERUM 3.8 mmol/L (3.5-5.1); PROTEIN - SERUM 6.6 g/dL (6.4-8.2); T4 THYROXIN - FREE 1.12 ng/dL (0.76-1.46); THYROID STIMULATING HORMONE 5.59 uIU/mL (0.36-3.74)
[2019-06-24] VITALS (31 sets, daily range): BP systolic 90–133; BP diastolic 47–60; BMI 34.3; BMI 35.4
--- NOTE | 2019-06-24 13:30 | NUR ---
ARRIVED TO UNIT AT 1316 VIA BED FROM OR. ON VENT. VENT SETTING A/C, R 14, TV 500, FIO2 75% PEEP 5. ETT SIZE 8.0 23 AT LIP LINE LEFT. RIJ WITH PLASMOLYTE, JAN, AND DOPAMINE INFUSING. SEE IV FLOWSHEET FOR RATES. TPM WIRES CONNECTED AAI RATE 80, AMA 10, SEN 0.5. MIDSTERNAL DRESSING C/D/I. SUBSTERNAL CT X 2 TO 20CM SUCTION, NOT AIR LEAK NOTED. LEFT LORENA DRAIN IN PLACE WITH SANGUINOUS DRAINAGE NOTED. BLUNT IN PLACE WITH CLEAR YELLOW URINE NOTED. LLE HARVEST SITES WRAPPED WITH COBAN DRESSING. SAFETY MEASURES IN PLACE. WRIST RESTRAINTS APPLIED UPON ARRIVAL. RIGHT RADIAL ASHLY SECURED IN PLACE WITH WRIST PROTECTOR. BED PLACED IN LOW POSITION. WILL CONTINUE TO MONITOR CLOSELY.
--- NOTE | 2019-06-24 14:10 | NUR ---
DR. MELENDEZ NOTIFIED OF ABG RESULTS. NO ACTION TAKEN AT THIS TIME. WILL CONTINUE TO MONITOR CLOSELY.
--- NOTE | 2019-06-24 15:25 | NUR ---
RESTING COMFORTABLY AT THIS TIME. PLACED ON SPONTANOUS BREATHING BY RT. WILL CONTINUE TO MONITOR CLOSELY.
--- NOTE | 2019-06-24 16:31 | NUR ---
DR. MELENDEZ NOTIFIED OF ABG RESULTS. OKAY TO EXTUBATE PT PER DR. MELENDEZ.
--- NOTE | 2019-06-24 16:52 | NUR ---
PT WAS EXTUBATED AT 1641. PLACED ON 2L OF O2 VIA NC. VERIFIED WITH DR. MELENDEZ IF HE WANTED BASE EXCESS TO BE TREATED PER PROTOCOL. DR. MELENDEZ DID NOT WANT ANY BICARB TO BE GIVEN AT THIS TIME. WILL CONTINUE TO MONITOR.
--- NOTE | 2019-06-24 17:10 | NUR ---
RATES PAIN 10/10 AT INCISION SITE. MORPHINE 2MG IV GIVEN PER ORDER. WILL CONTINUE TO MONITOR AND TREAT.
--- NOTE | 2019-06-24 17:22 | NUR ---
I.S EXERCISES INITIATED AT THIS TIME. PT PULLS 250-500. COUGH DEEP BREATH GOOD EFFORT NOTED. ICE CHIPS PROVIDED. NO FURTHER NEEDS. WILL CONTINUE TO MONITOR.
--- NOTE | 2019-06-24 18:01 | NUR ---
PULLED UP IN BED AND REPOSITIONED FOR COMFORT. PT TOLERATING ICE WATER AND ICE CHIPS. WILL CONTINUE TO MONITOR AND TREAT.
--- NOTE | 2019-06-24 18:28 | NUR ---
I.S. exercises performed at this time. Pulls 750-1000 on I.S. Rates pain 5/10 at incision site. 10mg percocet tab given per orders.
--- NOTE | 2019-06-24 18:52 | NUR ---
DR. MELENDEZ NOTIFIED OF ABG RESULTS. NO ACTION NEEDED AT THIS TIME.
--- NOTE | 2019-06-24 18:56 | NUR ---
DR. MELENDEZ NOTIFIED OF HR 99-100. ORDERED TO DISCONTINUE DOPAMINE AND TURN PACEMAKER OFF AT THIS TIME.
--- NOTE | 2019-06-24 19:14 | NUR ---
REPORT RECEIVED, SHIFT ASSESSMENT COMPLETED PER FLOW SHEET, SEE FOR DETAILS. INFORMED BY DAY SHIFT RN TO MAINTAIN SBP 90-[address] MELENDEZ'S ORDERS. 2121 SCHEDULED MEDS GIVEN, SEE EMAR FOR DETAILS. WATER PROVIDED, TOLERATING WELL. AT BEDSIDE. DENIES NEEDS. CALL LIGHT WITHIN REACH. 2239 DANGLED AT BEDSIDE X2 RN ASSISST. AFTER 2 MINUTES PATIENT STATED "I FEEL DIZZY, I THINK I AM GOING PASS OUT" BP STABLE, VITAL SIGNS STABLE, ASSISSTED BACK IN BED, VITAL SIGNS REMAIN STABLE. STATES SHE FEELS BETTER AFTER LAYING IN BED. STATES "AFTER THE STROKE I HAD I GET REALLY DIZZY WHEN I GET OUT OUT BED. WILL CONTINUE TO MONITOR. DENIES NEEDS. 2300 REASSESSMENT COMPLETED PER FLOW SHEET, SEE FOR DETAILS. 0100 RESTING IN BED, NO ACUTE DISTRESS NOTED. WILL CONTINUE TO MONTIOR. CALL LIGHT WITHIN REACH.
--- NOTE | 2019-06-24 19:16 | NUR ---
ORAL CARE DONE WITH PERIDEX
[2019-06-25] VITALS (35 sets, daily range): BP systolic 76–139; BP diastolic 42–64; Ht 167.6 cm; Wt 100.7 kg
--- NOTE | 2019-06-25 03:31 | NUR ---
REASSESSMENT COMPLETED PER FLOW SHEET, SEE FOR DETAILS. 0504 C/O PAIN AFTER CHEST XR, PRN PERCOCET GIVEN, DENIES OTHER NEEDS. FAMILY AT BEDSIDE. CALL LIGHT WITHIN REACH.
--- NOTE | 2019-06-25 05:00 | NUR ---
AWAKE AND ALERT. VSS. SISTER AT BEDSIDE. CALL LIGHT IN REACH
--- NOTE | 2019-06-25 06:00 | NUR ---
BED BATH GIVEN, SUBSTERNAL DRESSING CHANGED. LLE DRESSING REMOVED, X2 INCISION SITES, NO DRAINAGE, WELL APPROXIMATED. 0630 ASSISSTED OOB TO CHAIR, X3 PERSON ASSISST. TOLERATED WELL. CALL LIGHT WITHIN REACH. WILL CONTINUE TO MONITOR.
[2019-06-25 06:14] LABS: HEMATOCRIT 28.9 % (36.0-48.0); HEMOGLOBIN 9.6 g/dL (12-16); MCH 31.3 pg (26.0-34.0); MCHC 33.2 g/dL (31.0-37.0); MCV 94.1 fL (80.0-100.0); MEAN PLATELET VOLUME 9.7 fL (7.4-10.4); RBC 3.07 10x6/uL (4.00-5.40); RDW 12.8 % (11.5-14.5); WBC 14.6 10x3/uL (4.8-10.8)
[2019-06-25 06:51] LABS: ALBUMIN 2.9 g/dL (3.4-5.0); ANION GAP 12.5 mmol/L (8-16); BILIRUBIN - TOTAL 0.59 mg/dL (0.2-1.3); CARBON DIOXIDE 24.7 mmol/L (21.0-32.0); CREATININE - SERUM 1.2 mg/dL (0.6-1.3); POTASSIUM - SERUM 4.2 mmol/L (3.5-5.1); PROTEIN - SERUM 5.2 g/dL (6.4-8.2)
--- NOTE | 2019-06-25 12:30 | NUR ---
1100-CARDIAC REHAB AT BEDSIDE AND SPOKE WITH PT REGARDING CARE PLAN AT DISCHARGE
--- NOTE | 2019-06-25 12:33 | NUR ---
0750-NOTED ABP AND NIBP TREND DECREASING TO 74/42-DR MELENDEZ NOTIFIED OF SAME -PT UP IN CHAIR-500ML N/S FLUID CHALLENGE STARTED-ASSISTED PT TO BED WITH ASSISTANCE OF 2 -PT STATED L SIDE VERY WEAK AND DIZZY-POOR ASSIST FROM PT-PLACED IN SUPINE-NEOSYENPHRINE AT 0.25-STAT ABG ORDERED-
--- NOTE | 2019-06-25 12:43 | NUR ---
0900-[facility] UNIT [id number] STARTED ORDERED 1010-DR MELENDEZ AT [facility] INFUSED-NEOSYNEPHRINE TURNED OFF -NIBP 144/79
--- NOTE | 2019-06-25 13:29 | TEE ---
PATIENT:SUSANNE GUTIERREZ MEDICAL RECORD: [id number] LOCATION:[place] [address] AGE OF PATIENT: 68 ADMISSION DATE: 06/24/19 SEX: F REFERRING PHYSICIAN: INTERPRETING PHYSICIAN: SIMEON ROSALES MD TRANSESOPHAGEAL ECHOCARDIOGRAM Date: 06/24/19 DAY[place] CHARGE Y INDICATIONS: CABG PREMEDICATIONS: PATIENT'S RESPONSE PROCEDURE DOPPLER MEASUREMENTS: LVIT LA 3.8 PA RA LVOT RVOT Asc. Ao AV Gradient Peak AV Mean AV Area MV Gradient Peak MV Mean MV Area INTERPRETATION: Doppler: 2-D: COLOR FLOW DOPPLER NORMAL SALINE STUDY: MISCELLANOUS: DIAGNOSIS: PLAN: Building Surveyor:1 Dr. Rosales Green Chainer: Radha MURRY COMMENTS: AL/ISRAEL PATIENT DATE OF SERVICE: 06/24/2019 PROCEDURE: Transesophageal echo evaluation of valvular structures during bypass surgery. FINDINGS: 1. Left ventricular chamber size is within normal limits. Left ventricular systolic function is normal. Overall ejection fraction estimated at 60%. 2. Left atrium, right atrium, right ventricular chamber sizes are within normal TRANSESOPHAGEAL ECHOCARDIOGRAM REPORT [id number] ROGE GUTIERREZ. 3. Valvular structures have normal structure and motion. 4. Doppler interrogation reveals only trace mitral regurgitation. No other valvular insufficiency or stenosis. 5. No evidence of pericardial effusion or left ventricular thrombus. TRANSINT:[id number] Voice Confirmation ID: [id number] DOCUMENT ID: [id number] at 1329 CC: [id number] DICTATION DATE: 06/24/19 1411 MATERIAL WORKER: 06/25/19 0408 ADM IN [place] [id number] [place] [address]
--- NOTE | 2019-06-25 18:17 | NUR ---
1400-UP IN CHAIR-R RADIAL ASHLY D/C'D TIP INTACT-L PERIPHERAL A/C-ABLE TO DRAW BACK BLOOD-NOT ABLE TO FLUSH-SITE D/C'D WITH TIP INTACT-R JUGULAR PLASMALYTE AT 100ML/H
--- NOTE | 2019-06-25 19:00 | NUR ---
REPORT RECEIVED, RECEIVED PATIENT IN BED. AWAKE, ALERT AND ORIENTED X 4. MONITORS CONNECTED TO PATIENT WITH ALARMS SET. VSS. ASSESSMENT COMPLETED PER FLOW SHEET WITH NO ACUTE DISTRESS OBSERVED. CALL LIGHT IN REACH AND ABLE TO UTILIZE TO MAKE NEEDS KNOWN. CHEST TUBES X2 INTACT/SECURE/PATENT DRAINING SCANT AMOUNT OF BLOODY DRAINAGE INTO COLLECTION CHAMBER CONNECTED TO 20CM SX.
--- NOTE | 2019-06-25 19:19 | MORECARE ---
CASE MANAGEMENT DISCHARGE SUMMARY PATIENT: SUSANNE GUTIERREZ UNIT: [id number] ADM DATE: 06/24/19 AGE: 68 : 48 SEX: F ROOM/BED: [facility] AUTHOR: LULA DELGADILLO PHYSICIAN: REFERRING PHYSICIAN: NISH MELENDEZ MD DATE OF SERVICE: 06/25/19 Discharge Plan Patient Name: SUSANNE GUTIERREZ [facility] [facility] 1950 Planned Disposition: Home with Home Health Anticipated Discharge Date: Discharge Date: Expected LOS: Initial Reviewer: [email or web address] Initial Review Date: 06/25/2019 Generated: 06/25/19 8:18 pm Patient Name: SUSANNE GUTIERREZ Page 37848 at 1919 All edits/amendments must be made on the electronic document DICTATION DATE: 06/25/191917 POLE SANDER OPERATOR: BLACK 06/25/191917 RPT#: [id number] DC DATE: STATUS: ADM IN [facility] [address] [place] [address] END OF REPORT
--- NOTE | 2019-06-25 19:26 | MORECARE ---
CASE MANAGEMENT DISCHARGE SUMMARY PATIENT: SUSANNE GUTIERREZ UNIT: [id number] ADM DATE: 06/24/19 AGE: 68 : 48 SEX: F [facility] AUTHOR: LULA DELGADILLO PHYSICIAN: REFERRING PHYSICIAN: NISH MELENDEZ MD DATE OF SERVICE: 06/25/19 Discharge Plan Patient Name: SUSANNE GUTIERREZ [facility] [facility] 1950 Planned Disposition: Home with Home Health Anticipated Discharge Date: Discharge Date: Expected LOS: Initial Reviewer: [email or web address] Initial Review Date: 06/25/2019 Generated: 06/25/19 8:25 pm DCPIA - Discharge Planning Initial Assessment Updated by [email or web address]: Devika Hardy on 06/25/19 7:21 pm * Is the patient Alert and Oriented? Yes * How many steps to enter\exit or inside your home? * PCP Loan Bertrand * Pharmacy [facility] * Preadmission Environment Home with Family * ADLs Independent * Equipment None * List name and contact numbers for known caregivers / representatives who currently or will assist patient after discharge: JHON GUTIERREZ - SON - [phone] VICKI PEÑA - DAUGHTER- [phone] RENÉ GUTIERREZ - - [phone] * Verbal permission to speak to the caregivers and representatives has been obtained from the patient. Yes * Community resources currently utilized None * Additional services required to return to the preadmission environment? No * Can the patient safely return to the preadmission environment? Yes * Has this patient been hospitalized within the prior 30 days at any hospital? No Last DP export: 06/25/19 6:19 Patient Name: SUSANNE GUTIERREZ Page 40519 at 1926 All edits/amendments must be made on the electronic document DICTATION DATE: 06/25/191924 RADAR REPAIRER: BLACK 06/25/191924 RPT#: [id number] DC DATE: STATUS: ADM IN [facility] [address] [place] [address] END OF REPORT
--- NOTE | 2019-06-25 19:32 | MORECARE ---
CASE MANAGEMENT DISCHARGE SUMMARY PATIENT: SUSANNE GUTIERREZ UNIT: [id number] ADM DATE: 06/24/19 AGE: 68 : [birth year] SEX: F ROOM/BED: D.[facility] AUTHOR: ELIE,DOC PHYSICIAN: REFERRING PHYSICIAN: NISH MELENDEZ MD DATE OF SERVICE: 06/25/19 Discharge Plan Patient Name: SUSANNE GUTIERREZ Facility: [facility]:[place] : 1950 Planned Disposition: Home with Home Health Anticipated Discharge Date: Discharge Date: Expected LOS: Initial Reviewer: [email or web address] Initial Review Date: 06/25/2019 Generated: 06/25/19 8:32 pm Comments DCP- Discharge Planning Updated by [email or web address]: Devika Hardy on 06/25/19 6:[address] Patient Name: SUSANNE GUTIERREZ Admission Status: Urgent Accout number: [id number] Admission Date: 06-24-2019 : 1950 Admission Diagnosis: Attending: NISH MELENDEZ Current LOS: 1 Anticipated DC Date: Planned Disposition: Home with Home Health Primary Insurance: MEDICARE A & B Discharge Planning Comments: CM met with patient to complete initial dc planning assessment. CM educated patient on the CM role and verbal consent given by patient to complete assessment. Patient lives at home with her where she is independent with her care. At discharge patient plans to return home and feels this is a safe discharge. CM discussed availability of home health, rehab services, and medical equipment. Patient is requesting to be discharged with HH but uncertain of which provider she also stated that she may need a walker upon discharge. Patient will need BILLIE signed once she speaks with her family. Patient denied known discharge needs at this time. CM will continue to follow and will assist as needed with dc plans/needs. Hand Printed Circuit Board Assembler: Devika Hardy DCPIA - Discharge Planning Initial Assessment Updated by [email or web address]: Devika Hardy on 06/25/19 7:21 pm * Is the patient Alert and Oriented? Yes * How many steps to enter\exit or inside your home? * PCP [facility] * Pharmacy [place] * Preadmission Environment Home with Family * ADLs Independent * Equipment None * List name and contact numbers for known caregivers / representatives who currently or will assist patient after discharge: JHON GUTIERREZ - SON - [phone] VICKI PEÑA - DAUGHTER- [phone] RENÉ GUTIERREZ - - [phone] * Verbal permission to speak to the caregivers and representatives has been obtained from the patient. Yes * Community resources currently utilized None * Additional services required to return to the preadmission environment? No * Can the patient safely return to the preadmission environment? Yes * Has this patient been hospitalized within the prior 30 days at any hospital? No Last DP export: 06/25/19 6:26 Patient Name: SUSANNE GUTIERREZ Page [id number] at 1932 All edits/amendments must be made on the electronic document DICTATION DATE: 06/25/191931 FISCAL TECHNICIAN: BLACK 06/25/191931 RPT#: [id number] TN DATE: STATUS: ADM IN [facility] [address] [place] [address] END OF REPORT
--- NOTE | 2019-06-25 21:00 | NUR ---
AWAKE AND ALERT. VSS
--- NOTE | 2019-06-25 23:00 | NUR ---
REASSESSMENT COMPLETED PER FLOW SHEET WITH NO ACUTE DISTRESS OBSERVED. CALL LIGHT IN REACH. VSS
[2019-06-26] VITALS (24 sets, daily range): BP systolic 93–129; BP diastolic 36–71
--- NOTE | 2019-06-26 01:00 | NUR ---
RESTING WITH EYES CLOSED, ROUSES EASILY AND ALERT. VSS
--- NOTE | 2019-06-26 03:00 | NUR ---
RESTING WITH EYES CLOSED, ROUSES EASILY AND ALERT. VSS. REASSESSMENT COMPLETED PER FLOW SHEET WITH NO ACUTE DISTRESS OBSERVED. CALL LIGHT IN REACH
[2019-06-26 06:45] LABS: HEMATOCRIT 28.4 % (36.0-48.0); HEMOGLOBIN 9.1 g/dL (12-16); MCH 30.8 pg (26.0-34.0); MEAN PLATELET VOLUME 9.6 fL (7.4-10.4); RBC 2.95 10x6/uL (4.00-5.40); RDW 14.6 % (11.5-14.5); WBC 11.4 10x3/uL (4.8-10.8)
[2019-06-26 07:02] LABS: ALBUMIN 2.5 g/dL (3.4-5.0); ANION GAP 10.6 mmol/L (8-16); BILIRUBIN - TOTAL 0.64 mg/dL (0.2-1.3); CALCIUM 7.6 mg/dL (8.5-10.1); CARBON DIOXIDE 27.7 mmol/L (21.0-32.0); CREATININE - SERUM 1.2 mg/dL (0.6-1.3); POTASSIUM - SERUM 4.3 mmol/L (3.5-5.1); PROTEIN - SERUM 5.3 g/dL (6.4-8.2)
[2019-06-26 07:05] LABS: MCV 96.3 fL (80.0-100.0)
--- NOTE | 2019-06-26 10:05 | OP ---
PATIENT NAME: SUSANNE GUTIERREZ MEDICAL RECORD: [id number] :[birth year] LOCATION:D.CVI D.CV04 ADMISSION DATE:06/24/19 SURGEON: JHON MELENDEZ MD DATE OF OPERATION: 06/24/2019 SURGEON: Jhon Melendez MD ASSISTANTS: LILI Kahn MD and Jim Singh. OPERATION PERFORMED: 1. Coronary artery bypass graft times 4 (left internal mammary artery to LAD, reverse saphenous vein graft from aorta to obtuse marginal, from the site of that vein graft to the first diagonal distally, and from aorta to posterior descending artery). 2. Endoscopic saphenous vein harvest. PREOPERATIVE DIAGNOSIS: Coronary artery disease. POSTOPERATIVE DIAGNOSIS: Coronary artery disease. ANESTHESIA: General endotracheal anesthesia. ESTIMATED BLOOD LOSS: Total cardiopulmonary bypass with Cell Saver retransfusion. COMPLICATIONS: None. SPECIMENS: None. CONDITION: Stable. DISPOSITION: CV ICU. OPERATIVE FINDINGS: 1. Good quality greater saphenous vein harvest from the left lower extremity as the right greater saphenous vein was not easily found below the knee. 2. Good quality left internal mammary artery. 3. Large fatty heart. 4. A 4.1 cm ascending aorta, DAYANA with no significant valvular incompetence or stenosis and normal contractility. 5. LAD 2.0 mm with moderate plaque. 6. Obtuse marginal is 1.75 mm. 7. The diagonal is 1.25 mm thin walled. 8. Posterior ascending artery is 2.0 mm. 9. The patient required atrial pacing after giving amiodarone. OPERATIVE INDICATION: Coronary artery disease with restenosis. DESCRIPTION OF PROCEDURE: The patient was brought to the operating suite. General anesthesia was obtained. The patient was prepped and draped. Greater saphenous vein harvested from the left lower extremity after initially attempting to find the right greater saphenous vein. Side branches were divided with electrocautery. The vessel ligated proximally and distally removed. The side branches were tied and thin sites were oversewn. Later, the leg was closed in 2 layers. OPERATIVE REPORT [id number] SUSANNE GUTIERREZ Median sternotomy incision was made. Subcutaneous tissue divided with electrocautery. The sternum was divided with a saw. The left hemisternum was elevated. Left pleural cavity was entered. Left internal mammary artery and vein was taken down as a pedicle graft. Sternal retractor was placed. Pericardium was opened. Heparin was given. Aorta was cannulated. Dual stage venous cannula was inserted. The internal mammary was clipped distally and made ready for anastomosis. After activating clotting time was appropriately elevated, the patient was placed on cardiopulmonary bypass. Sites for distal anastomosis were elected. The patient's temperature drifted downwardly. Antegrade cardioplegic cannula was inserted. Crossclamp was placed and cardioplegia given antegrade. This repeated down the completed vein grafts also at 20-minute intervals. Distal anastomosis was performed standard technique. Proximal anastomosis with single cross-clamp technique. A single [id number] anastomosis was performed. The patient was weaned from cardiopulmonary bypass and was stable. After separation, the patient had some bradycardia, responded to placement of atrial pacing wires and atrial pacing. Ventricular pacing wires were also placed. The patient was decannulated, fully rewarmed. The protamine was given. Aortic cannulation site was oversewn with pledgeted Prolene suture. Left chest was evacuated and irrigated. Good Doppler signal of the left internal mammary was noted. Drains were placed in the mediastinum and the left pleural cavity. Pericardial fat was loosely reapproximated. Internal mammary harvest site was inspected for bleeding. Sternum was closed with wires. Fascia was closed. Subcutaneous tissue was closed. Skin was closed. Dermabond was placed. The needle and sponge counts reported as correct. The patient was taken to ICU in stable condition. TRANSINT:[id number] Voice Confirmation ID: [id number] DOCUMENT ID: [id number] JHON MELENDEZ MD at 1005 CC: DANDY WOOD M.D. [id number] DICTATION DATE: 06/24/19 1301 DIRECTOR OF CONTENT MARKETING: 06/24/19 1321 ADM IN [facility] [address] [place] [address]
--- NOTE | 2019-06-26 17:15 | NUR ---
0700: UP IN CHAIR. ASSESSMENT COMPLETE. NO DISTRESS NOTED. 0945: BACK TO BED WITH ASSISTANCE FROM PT AND NURSE. 1015: CT DC'D BY DR. MELENDEZ. TEMP PACER DC'D AND WIRES COILED TO CHEST. 1130: UP TO CHAIR FOR LUNCH. 1400: AMBULATED TO ROOM DOOR WITH PT. 1700: BACK TO BED FOR THE NIGHT. NO CHANGES IN CONDITION. NO DISTRESS NOTED.
--- NOTE | 2019-06-26 19:00 | NUR ---
REPORT RECEIVED, RECIEVED PATIENT IN BED AWAKE AND ALERT. ORIENTED X 4. AT BEDSIDE. MONITORS CONNECTED TO PATIENT WITH ALARMS SET.VSS. ASSESSMENT COMPLETED PER FLOW SHEET WITH NO ACUTE DISTRESS OBSERVED. CALL LIGHT IN REACH AND ABLE TO UTILIZE TO MAKE NEEDS KNOWN.
--- NOTE | 2019-06-26 21:00 | NUR ---
PM MEDS TAKEN WITHOUT DIFF. COUGHIHG/DEEP BREATHING PERFORMED WITH GOOD EFFORT. IS USED. CALL LIGHT IN REACH . VSS
--- NOTE | 2019-06-26 23:00 | NUR ---
REASSESSMENT COMPLETED PER FLOW SHEET WITH NO ACUTE DISTRESS OBSERVED. VSS. CALL LIGHT IN REACH.
[2019-06-27] VITALS (24 sets, daily range): BP systolic 105–141; BP diastolic 40–66
--- NOTE | 2019-06-27 01:00 | NUR ---
RESTING WITH EYES CLOSED, EASILY ROUSED AND ALERT. VSS
--- NOTE | 2019-06-27 03:00 | NUR ---
RESTING WITH EYES CLOSED, EASILY ROUSED AND ALERT. VSS. REASSESSMENT COMPLETED PER FLOW SHEET WITH NO ACUTE DISTRESS OBSERVED. CALL LIGHT IN REACH
--- NOTE | 2019-06-27 05:00 | NUR ---
AWAKE AND ALERT. VSS.
[2019-06-27 06:09] LABS: HEMATOCRIT 29.1 % (36.0-48.0); HEMOGLOBIN 9.1 g/dL (12-16); MCH 30.4 pg (26.0-34.0); MCHC 31.3 g/dL (31.0-37.0); MCV 97.3 fL (80.0-100.0); MEAN PLATELET VOLUME 9.6 fL (7.4-10.4); RBC 2.99 10x6/uL (4.00-5.40); RDW 14.3 % (11.5-14.5)
[2019-06-27 06:26] LABS: ALBUMIN 2.4 g/dL (3.4-5.0); ANION GAP 10.2 mmol/L (8-16); BILIRUBIN - TOTAL 0.52 mg/dL (0.2-1.3); CALCIUM 7.8 mg/dL (8.5-10.1); CARBON DIOXIDE 27.8 mmol/L (21.0-32.0); CREATININE - SERUM 1.3 mg/dL (0.6-1.3); PROTEIN - SERUM 5.6 g/dL (6.4-8.2)
--- NOTE | 2019-06-27 18:05 | NUR ---
0700: UP IN CHAIR. NO DISTRESS NOTED. 1000: DR. MELENDEZ HERE. NEW ORDERS REC'D. 1615: MERLENE ESCAMILLA'[place]. 1700: ASSISTED BACK TO BED FOR NIGHT. NO DISTRESS NOTED.
--- NOTE | 2019-06-27 19:00 | NUR ---
REPORT RECEIVED. PATIENT RECEIVED IN BED, AWAKE ALERT AND ORIENTED X 4. FAMILY AT BEDSIDE. MONITORS CONNECTED TO PATIENT WITH ALARMS SET. VSS. SHIFT ASSESSMENT COMPLETED PER FLOW SHEET WITH NO ACUTE DISTRESS OBSERVED. CALL LIGHT IN REACH AND ABLE TO UTILIZE TO MAKE NEEDS KNOWN.
--- NOTE | 2019-06-27 21:00 | NUR ---
AWAKE AND ALERT. VSS. PM MEDS TAKEN WITHOUT DIFF. CALL LIGHT IN REACH
--- NOTE | 2019-06-27 23:00 | NUR ---
REASSESSMENT COMPLETED PER FLOW SHEET WITH NO ACUTE DISTRESS OBSERVED. CALL LIGHT IN REACH
[2019-06-28] VITALS (24 sets, daily range): BP systolic 116–166; BP diastolic 43–74
--- NOTE | 2019-06-28 03:00 | NUR ---
RESTING WIHT EYES CLOSED, EASILY ROUSED AND ALERT. VSS
--- NOTE | 2019-06-28 05:00 | NUR ---
AWAKE AND ALERT. VSS. CHG BATH GIVEN. ASSISTED UP TO BEDSIDE CHAIR. JIMMY WITHOUT DIFF. CALL LIGHT IN REACH
[2019-06-28 06:17] LABS: HEMATOCRIT 29.5 % (36.0-48.0); HEMOGLOBIN 9.4 g/dL (12-16); MCH 30.6 pg (26.0-34.0); MCHC 31.9 g/dL (31.0-37.0); MCV 96.1 fL (80.0-100.0); MEAN PLATELET VOLUME 9.9 fL (7.4-10.4); RBC 3.07 10x6/uL (4.00-5.40); RDW 13.8 % (11.5-14.5); WBC 10.7 10x3/uL (4.8-10.8)
[2019-06-28 07:22] LABS: ALBUMIN 2.4 g/dL (3.4-5.0); ANION GAP 13.5 mmol/L (8-16); BILIRUBIN - TOTAL 0.5 mg/dL (0.2-1.3); CALCIUM 8.4 mg/dL (8.5-10.1); CARBON DIOXIDE 26.9 mmol/L (21.0-32.0); CREATININE - SERUM 1.1 mg/dL (0.6-1.3); POTASSIUM - SERUM 4.4 mmol/L (3.5-5.1)
--- NOTE | 2019-06-28 08:41 | NUR ---
0700 PT RECIEVED ALERT AN DORIENTED O2 2L NC, WEANED TO 1L, R IJ CVL DRESSING CDI, SL, MIDSTERNAL AND SUBSTERNAL DRESSINGS CDI WITH SUBSTERNAL TPM WIRES COILED, LORENA DRAIN EMPTIED, BLE HARVEST SITES CDI, DEENIES ALL NEEDS 0900 AM MEDS GIVEN, ATE 75% BREAKFAST, PULLSE 750-1000 ON IS AND REQUIRES MUCH ENCOURAGEMENT, WEAK PRODUCTIVE COUGH NOTED, EXPLAINED IMPORTANCE OF COUGHING AND DEEP BREATHING AND IS, STATES UNDERSTANDING
--- NOTE | 2019-06-28 12:19 | NUR ---
REPORT RECEIVED. PT SITTING UP IN CHAIR EATING LUNCH. FAMILY AT BEDSIDE. NO COMPLAINTS OR NEEDS AT THIS TIME. VSS. WILL CONTINUE TO MONITOR. CALL LIGHT IN REACH.
--- NOTE | 2019-06-28 13:22 | NUR ---
Nutrition Follow-up: Pt reports fair appetite/PO intake. Per nurse, ate ~75% of breakfast this AM. Pt reports ~50% of lunch today. Diet: Diabetic Wt: 223.7# (up from 219# on 06/24) -BM Labs noted: Glu 163# Meds noted: Lasix, KDur, Humulin, Glucotrol, Glucophage, Senokot, Colace -May consider cardiac carb consistent diet. RD following.
--- NOTE | 2019-06-28 13:54 | NUR ---
PT ASSISTED TO BATHROOM. VOIDED 750ML. PHYSICAL THERAPY NOW WITH PT WALKING.
--- NOTE | 2019-06-28 15:15 | NUR ---
PT RESTING QUIETLY. VSS. WILL CONTINUE TO MONITOR.
--- NOTE | 2019-06-28 16:08 | NUR ---
LEFT LORENA DRAIN REMOVED, NO DIFFICULTY. PT TOLERATED WELL.
--- NOTE | 2019-06-28 17:11 | NUR ---
BS 140. NO INSULIN COVERAGE. PT SITTING UP IN CHAIR. NOW EATING DINNER. NO COMPLAINTS OR NEEDS AT THIS TIME. WILL CONTINUE TO MONITOR.
--- NOTE | 2019-06-28 19:00 | NUR ---
REPORT RECEIVED, SHIFT ASSESSMENT COMPLETE PER FLOW SHEET, PT AWAKE AND ALERT, C/O INCISIONAL ACHING PAIN, PAIN MED GIVEN PER MAR/ORDERS, MIDSTERNAL/SUBSTERNAL DRSG'S C/D/I, BLE HARVEST SITES C/D/I LOAD TESTER NO DRAINAGE NOTED, RT IJ CVL SL, I/S COMPLETE 750-1000ML WITH GOOD EFFORT, VSS, NSR ON CM, SCD AND NICK HAMILTON BLE, HOB ELEVATED, CALL LIGHT IN REACH, WILL CONTINUE TO MONITOR
--- NOTE | 2019-06-28 23:00 | NUR ---
REASSESSMENT COMPLETE SEE FLOW SHEET, NO ACUTE CHANGES OR S/S OF DISTRESS NOTED, REPOSITIONED PT IN BED FOR COMFORT, HOB ELEVATED, DENIES PAIN, VSS, WILL CONTINUE TO MONITOR
[2019-06-29] VITALS (24 sets, daily range): BP systolic 92–151; BP diastolic 42–72
--- NOTE | 2019-06-29 | NUR ---
PT OOB TO BATHROOM WITH MINIMAL ASSIST, CLEAR YELLOW VOID NOTED, NO BM, PT REQUESTED TO SIT IN CHAIR, REPOSITIONED FOR COMFORT, ELEVATED LOWER EXTREMITIES, SCD'S CONNECTED, CALL LIGHT AND BEDSIDE TABLE IN REACH, NSR ON CM, VSS, WILL CONTINUE TO MONITOR
--- NOTE | 2019-06-29 01:00 | NUR ---
PT AMBULATED WITH MINIMAL ASSIST BACK TO BED, REPOSITIONED FOR COMFORT, HOB ELEVATED, SCD'S CONNECTED, VSS, NSR ON CM, CALL LIGHT IN REACH, WILL CONTINUE TO MONITOR
--- NOTE | 2019-06-29 03:00 | NUR ---
REASSESSMENT COMPLETE SEE FLOW SHEET, NO ACUTE CHANGES NOTED, PT AWAKE AND ALERT, VSS, NSR ON CM, WILL CONTINUE TO MONITOR
--- NOTE | 2019-06-29 05:30 | NUR ---
CHG BATH AND COMPLETE LINEN CHANGE, GOWN REPLACED, PT AMBULATED TO CHAIR WITH MINIMAL ASSIST, REPOSITIONED FOR COMFORT, LOWER EXTREMITIES ELEVATED, NO ACUTE S/S OF DISTRESS NOTED, VSS, NSR ON CM, WILL CONTINUE TO MONITOR
[2019-06-29 06:15] LABS: HEMATOCRIT 28.7 % (36.0-48.0); HEMOGLOBIN 9.1 g/dL (12-16); MCH 30.5 pg (26.0-34.0); MCHC 31.7 g/dL (31.0-37.0); MCV 96.3 fL (80.0-100.0); MEAN PLATELET VOLUME 9.4 fL (7.4-10.4); RBC 2.98 10x6/uL (4.00-5.40); RDW 13.4 % (11.5-14.5); WBC 8.3 10x3/uL (4.8-10.8)
[2019-06-29 06:41] LABS: ALBUMIN 2.1 g/dL (3.4-5.0); ANION GAP 8.4 mmol/L (8-16); BILIRUBIN - TOTAL 0.35 mg/dL (0.2-1.3); CALCIUM 8.4 mg/dL (8.5-10.1); CARBON DIOXIDE 29.1 mmol/L (21.0-32.0); POTASSIUM - SERUM 4.5 mmol/L (3.5-5.1); PROTEIN - SERUM 5.5 g/dL (6.4-8.2)
--- NOTE | 2019-06-29 09:22 | NUR ---
0700 PT RECIEVED ALERT AND ORIENTED R IJ CVL DRESSING CDI, SL, O2 2L NC, MIDSTERNAL AND SUBSTERNAL DRESSINGS CDI WITH SUBSTERNAL TPM WIRES COILED, BLE HARVEST SITES CDI, TEDS ANDSCDS IN PLAC 0900 AM MEDS GIVEN, 75% BREAKFAST,
--- NOTE | 2019-06-29 11:17 | NUR ---
HELENE FROM [facility] IN [place] CALLED AND SAID THAT DAUGHTER HAD TOLD HER THAT THEY WOULD NEED THE PATIENT'S PCP TO MAKE ARRANGEMENT FOR HOME HEALTH. HELENE HAS FAXED AN ORDER TO [facility]. THEY WILL SEE PT 7 DAYS IN A ROW. FAMILY IS WORRIED THAT SINCE EVERYONE WORKS AND PT WOULD BE HOME MOST OF THE DAY ALONE THAT SHE MAY JUST SIT IN HER CHAIR THE WHOLE TIME. REHAB MAY BE MORE APPROPRIATE TRANSITION WHEN PT READY TO DISCHARGE FROM HOSPITAL. HELENE CAN BE REACHED AT [phone]
--- NOTE | 2019-06-29 15:17 | NUR ---
Rehab Note- Acute Inpatient REhab prescreen order received. Visited with the patient, she is in agreeance with an inpatient acute rehab stay prior to being discharged home with home health set up. Will plan on accepting the patient to [facility] Acute Inpatient Rehab when medically stable and ready for discharge from the acute hospital. Will follow at this time. Thank you for this referral! Cassidy Kong RN Clinical Liaison, [facility] Rehab
--- NOTE | 2019-06-29 16:55 | NUR ---
1100 AMBULATED WITH PT ON 1L O2 1200 ATE 75% LUNCH 1500 AMBULATED WITH PT 1645 ATE 100% DINNER PT USES IS HOURLY AND IS REPEATEDLY ENCOURAGED TO COUGH, PT STATES THAT IT HURTS AND TRIES TO NOT COUGH/HOLD COUGHS IN DESPITE DISCUSSING IMPORTANCE
--- NOTE | 2019-06-29 17:40 | NUR ---
PT ASSISTED TO BED, R IJ REMOVED PER PROTOCOL TIP INTACT NO SIGNS OF BLEEDING, SUBSTERNAL DRESSING CHANGED
--- NOTE | 2019-06-29 19:53 | NUR ---
PT RECEIVED WITH EYES OPEN, ALERT. NO NEEDS OR COMPLAINTS NOTED. CALL LIGHT IN REACH. WILL CONTINUE TO OBSERVE.
--- NOTE | 2019-06-29 21:38 | NUR ---
AT BEDSIDE AT 1999, SISTER CAME IN AFTER. LEFT AT 2099 AND SISTER AT BEDSIDE AT THIS TIME. HAS RECEIVED SCHEDULED MEDICATIONS PER MAR WITH PRN PAIN MEDICATION GIVEN PER MAR FOR INCISIONAL PAIN 04/17. CALL LIGHT IN REACH. WILL CONTINUE TO OBSERVE.
--- NOTE | 2019-06-29 21:42 | NUR ---
SON AT BEDSIDE 2014. SCHEDULED MEDICATIONS GIVEN PER NOV WITH PRN PAIN MEDICATION GIVEN PER NOV FOR 8/10 INCISIONAL PAIN. PT PULLED UP IN BED AND WARM BLANKET PROVIDED PER REQUEST. CALL LIGHT IN REACH. WILL CONTINUE TO OBSERVE.
--- NOTE | 2019-06-29 23:24 | NUR ---
PT WITH NEW IV TO LEFT HAND 20GA. 2 ATTEMPTS BY THIS NURSE WITH PT SHAKING AND TENSING UP ARMS. PT GOES INTO A SHORT TACHYCARDIC 160 AND BACK DOWN TO 70'S NORMAL SINUS. ANOTHER NURSE ATTEMPTS AND IV ACCESS RECEIVED. IV ABX STARTED PER NOV. CALL LIGHT IN REACH. NO S/S OF DISTRESS NOTED AT THIS TIME. NO NEEDS MADE KNOWN. WILL CONTINUE TO OBSERVE.
[2019-06-30] VITALS (24 sets, daily range): BP systolic 114–183; BP diastolic 40–74
--- NOTE | 2019-06-30 01:20 | NUR ---
ORDER ENTERED FOR DULCOLAX SUPPOSITORY PER ORDER SINCE PT UNABLE TO HAVE BM BY END OF NIGHT. ORDER PLACED AND PT USES CALL LIGHT FOR ASSIST TO BATHROOM, URINE ONLY. UNABLE TO PULL MEDICATION, HOUSE SUPPERVISOR CALLED AND MADE AWARE. 350 MLS URINE NOTED. CALL LIGHT IN REACH. WILL CONTINUE TO OBSERVE.
--- NOTE | 2019-06-30 03:20 | NUR ---
PT ASSISTED TO BATHROOM. 2OO ML URINE NOTED WITH LARGE BROWN SOFT FORMED STOOL NOTED. CHG BATH GIVEN WITH COMPLETE LINEN CHANGE. PT TOLERATED WELL. WHEN IN BED PT COMPLAINS OF PAIN 6/10 WITH PRN PAIN MEDICATION GIVEN PER NOV. CALL LIGHT IN REACH. WILL CONTINUE TO OBSERVE.
[2019-06-30 07:10] LABS: ANION GAP 10.1 mmol/L (8-16); CALCIUM 8.5 mg/dL (8.5-10.1); CARBON DIOXIDE 28.3 mmol/L (21.0-32.0); POTASSIUM - SERUM 4.4 mmol/L (3.5-5.1)
[2019-06-30 07:13] LABS: HEMATOCRIT 28.3 % (36.0-48.0); HEMOGLOBIN 8.8 g/dL (12-16); MCHC 31.1 g/dL (31.0-37.0); MCV 96.6 fL (80.0-100.0); MEAN PLATELET VOLUME 9.2 fL (7.4-10.4); RBC 2.93 10x6/uL (4.00-5.40); RDW 13.5 % (11.5-14.5); WBC 7.9 10x3/uL (4.8-10.8)
--- NOTE | 2019-06-30 07:40 | NUR ---
SHIFT REPORT RECEIVED. AA&OX4. UP IN CHAIR. DENIES HAVING PAIN AT THIS TIME. ON ROOM AIR. PIV ON LEFT HAND S.L. MIDSTERNAL DRESSING IN PLACE. TPM WIRES COILDED. SUBSTERNAL DRESSING C/D/I. BILAT HARVEST SITES SAMUEL. NICK HOSE ON BILAT LEGS. CALL LIGHT IN REACH. WILL CONTINUE TO MONITOR.
--- NOTE | 2019-06-30 09:00 | NUR ---
MARIN RN WITH DR. MELENDEZ IN UNIT. INFORMED HER THAT PT HAS BEEN COMPLAINING OF DIFFICULTY SWALLOWING AND HAS BEEN COUGHING WHEN TRYING TO SWALLOW.
--- NOTE | 2019-06-30 09:10 | NUR ---
AMBULATED 110FT WITH PHYSICAL THERAPY.
--- NOTE | 2019-06-30 09:47 | NUR ---
NUTRITION F//U CHART REVIEWED. POOR INTAKE DIABETIC DIET. NURSING REPORTS PT WITH C/O DIFFICULTY SWALLOWING. AWAITING RESULTS OF BEDSIDE SWALLOW EVAL. RD FOLLOWING
--- NOTE | 2019-06-30 11:00 | NUR ---
RE-ASSESSMENT COMPLETED. NO ACUTE CHANGES NOTED FROM PREVIOUS ASSESSMENT. RESTING COMFORTABLY IN CHAIR. WILL CONTINUE TO MONITOR.
--- NOTE | 2019-06-30 13:30 | NUR ---
AMBULATED TO BATHROOM WITH ASSISTANCE. VOIDED ABOUT 600ML OF CONCENTRATED URINE. ORAL CARE PERFORMED INDEPENDENTLY. NO FURTHER NEEDS AT THIS TIME. WILL CONTINUE TO MONITOR.
--- NOTE | 2019-06-30 15:00 | NUR ---
RE-ASSESSMENT COMPLETED. NO ACUTE CHANGES FROM PREVIOUS ASSESSMENT NOTED. DENIES ANY NEEDS AT THIS TIME. WILL CONTINUE TO MONITOR.
--- NOTE | 2019-06-30 16:45 | NUR ---
BLOOD GLUCOSE 159. 4 UNITS OF INSULIN REG GIVEN PER SLIDING SCALE. MEAL TRAY DELIVERED AND SET UP. PT DENIES FURTHER NEEDS A THIS TIME. SISTER AT BEDSIDE. WILL CONTINUE TO MONITOR.
--- NOTE | 2019-06-30 18:28 | NUR ---
PT BACK IN BED. RATES PAIN 7/10 AFTER TRANSFERRING TO BED. NORCO 5MG TAB GIVEN FOR PAIN. WILL CONTINUE TO MONITOR.
--- NOTE | 2019-06-30 19:47 | NUR ---
PT RECEIVED IN BED HOB UP WITH EYES OPEN. NO NEEDS MADE KNOWN. LEFT HAND SALINE LOCKED. VSS. CALL LIGHT IN REACH. WILL CONTINUE TO OBSERVE.
--- NOTE | 2019-06-30 21:20 | NUR ---
AND SISTER AT BEDSIDE. PT RECEIVED SCHEDULED MEDICATIONS PER MAR WITH NECTAR THICK WATER, TOLERATED WELL. NO NEEDS OR CONCERNS NOTED. VSS. CALL LIGHT IN REACH.
--- NOTE | 2019-06-30 23:26 | NUR ---
PT WITH EYES CLOSED AND CHEST RISING. EASILY AWOKEN TO VERBAL STIMULI. NO NEEDS NOTED THIS TIME. CALL LIGHT IN REACH. WILL CONTINUE TO OBSERVE.
[2019-07-01] VITALS (12 sets, daily range): BP systolic 129–170; BP diastolic 47–78
--- NOTE | 2019-07-01 01:46 | NUR ---
PT USES CALL LIGHT TO REQUEST PAIN MEDICATION 04/17 FOR INCISIONAL PAIN. MEDICATION GIVEN PER NOV. PT TOLERATED WELL. CALL LIGHT IN REACH. WILL CONTINUE TO OBSERVE.
--- NOTE | 2019-07-01 03:38 | NUR ---
PT WITH EYES CLOSED AND CHEST RISING. VSS. CALL LIGHT IN REACH. WILL CONTINUE TO OBSERVE.
--- NOTE | 2019-07-01 06:05 | NUR ---
PT UP TO TOILET WITH ASSIST RISING FROM SITTING POSTIION. CHG BATH GIVEN WITH MINIMAL ASSIST GIVEN WITH WASHING BACK AND BUTTOCKS. IN CHAIR. WILL CONTNUE TO OBSERVE.
--- NOTE | 2019-07-01 07:30 | NUR ---
REPORT RECEIVED. SHIFT ASSESSMENT COMPLETE. PT SITTING UP IN CHAIR AT BEDSIDE. WAS FINISHING UP BREATHING TREATMENT AT TIME OF REPORT. PT DENIES NEEDS, CALL LIGHT IN REACH.WAITING FOR BREAKFAST.
--- NOTE | 2019-07-01 07:53 | NUR ---
DR MELENDEZ BY TO SEE PATIENT. PLAN TO REHAB TODAY
[2019-07-01] MEDS ORDERED: AMIODARONE HCL200 MG PO (09:43)
[2019-07-01] MEDS ORDERED: LOPRESSOR25 MG PO (09:44)
[2019-07-01] MEDS ORDERED: HYDROCODON-ACE1 EAC7 PO (09:45)
[2019-07-01] MEDS ORDERED: K-DUR20 MEQ PO (09:45)
[2019-07-01] MEDS ORDERED: COLACE100 MG PO (09:47)
--- NOTE | 2019-07-01 11:21 | NUR ---
TPM WIRES HAVE BEEN REMOVED. PT HAS BEEN UP TO WALK WITH PHYSICAL THERAPY. CALLED REHAB UNIT TO FIND OUT WHERE PT STANDS ON TRANSFER OUT.
--- NOTE | 2019-07-01 12:56 | NUR ---
REPORT CALLED TO RENETTA ON REHAB UNIT.
--- NOTE | 2019-07-01 20:19 | MORECARE ---
CASE MANAGEMENT DISCHARGE SUMMARY PATIENT: SUSANNE GUTIERREZ UNIT: [id number] ADM DATE: 06/24/19 AGE: 68 : 46 SEX: F ROOM/BED: [facility] AUTHOR: ELIE,DOC PHYSICIAN: REFERRING PHYSICIAN: NISH MELENDEZ MD DATE OF SERVICE: 07/01/19 Discharge Plan Patient Name: SUSANNE GUTIERREZ Facility: [facility]:[place] : 1950 Planned Disposition: Home with Home Health Anticipated Discharge Date: Discharge Date: 07/01/2019 Expected LOS: Initial Reviewer: [email or web address] Initial Review Date: 06/25/2019 Generated: 07/01/19 9:19 pm Comments DCP- Discharge Planning Updated by [email or web address]: Devika Hardy on 07/01/19 7:[address] Patient Name: SUSANNE GUTIERREZ Encounter No: [id number] : 1950 Primary Insurance: MEDICARE A & B Anticipated DC Date: Planned Disposition: inpatient Rehab External Planned Provider: : d/c IMM SIGNED - DENIES ANY NEEDS DCP follow-up note: Patient and family in agreement with discharge plan. No changes to plan. Case management will follow and assist as needed. Devika Hardy DCP- Discharge Planning Updated by [email or web address]: Devika Hardy on 06/25/19 6:[address] Patient Name: SUSANNE GUTIERREZ Admission Status: Urgent Accout number: [id number] Admission Date: 06-24-2019 : 1950 Admission Diagnosis: Attending: NISH MELENDEZ Current LOS: 1 Anticipated DC Date: Planned Disposition: Home with Home Health Primary Insurance: MEDICARE A & B Discharge Planning Comments: CM met with patient to complete initial dc planning assessment. CM educated patient on the CM role and verbal consent given by patient to complete assessment. Patient lives at home with her where she is independent with her care. At discharge patient plans to return home and feels this is a safe discharge. CM discussed availability of home health, rehab services, and medical equipment. Patient is requesting to be discharged with HH but uncertain of which provider she also stated that she may need a walker upon discharge. Patient will need BILLIE signed once she speaks with her family. Patient denied known discharge needs at this time. CM will continue to follow and will assist as needed with dc plans/needs. Winery Worker: Devika Hardy DCPIA - Discharge Planning Initial Assessment Updated by [email or web address]: Devika Hardy on 06/25/19 7:21 pm * Is the patient Alert and Oriented? Yes * How many steps to enter\exit or inside your home? * PCP [facility] * [facility] * Preadmission Environment Home with Family * ADLs Independent * Equipment None * List name and contact numbers for known caregivers / representatives who currently or will assist patient after discharge: JHON GUTIERREZ - SON - [phone] VICKI PEÑA - DAUGHTER- [phone] RENÉ GUTIERREZ - - [phone] * Verbal permission to speak to the caregivers and representatives has been obtained from the patient. Yes * Community resources currently utilized None * Additional services required to return to the preadmission environment? No * Can the patient safely return to the preadmission environment? Yes * Has this patient been hospitalized within the prior 30 days at any hospital? No Coverage Notice Reviewer: [id number] - Devika Hardy Notice Issued Date-Time: 07/01/2019 9:50 Notice Type: IM Discharge Notice Notice Delivered To: Patient Relationship to Patient: Self Conductor Freight Name: Delivery Method: HAND - Hand Delivered Pia Days: Prior Verbal Notification: Recipient Understood Notice: Yes Recipient Signature: Yes Med Rec Note Co-signed by Attending: Coverage Notice Comment: Last DP export: 06/25/19 6:32 Patient Name: SUSANNE GUTIERREZ Page [id number] at 2019 All edits/amendments must be made on the electronic document DICTATION DATE: 07/01/19 2018 CIRCUIT DESIGN ENGINEER: BLACK 07/01/19 2018 RPT#: [id number] DC DATE:07/01/19 STATUS: DIS IN [facility] [address] [place] [address] END OF REPORT
== END 2019-07-01 13:31 | DRG 236 ==
LOC: D.SDCHOLD 13:00 → D.CVICU 06-24 05:00 → D.SDCHOLD 06-24 05:00 → D.CVICU 06-24 12:41 → D.SDCHOLD 06-24 13:00 → D.CVICU 07-01 13:31
PROVIDERS: ADMIT Thoracic Surgery (Cardiothoracic Vascular Surgery); ATTEND Thoracic Surgery (Cardiothoracic Vascular Surgery)
PROC: 021209W Bypass Coronary Artery, Three Arteries from Aorta with Autologous Venous Tissue, Open Approach (ICD-10-PCS; 2019-06-24)
PROC: 06BQ4ZZ Excision of Left Saphenous Vein, Percutaneous Endoscopic Approach (ICD-10-PCS; 2019-06-24)
PROC: B24BZZ4 Ultrasonography of Heart with Aorta, Transesophageal (ICD-10-PCS; 2019-06-24)
PROC: 5A1221Z Performance of Cardiac Output, Continuous (ICD-10-PCS; 2019-06-24)
PROC: 02100Z9 Bypass Coronary Artery, One Artery from Left Internal Mammary, Open Approach (ICD-10-PCS; principal; 2019-06-24 07:30)
DX: I25.10 Atherosclerotic heart disease of native coronary artery without angina pectoris (principal); D62 Acute posthemorrhagic anemia; R13.10 Dysphagia, unspecified

== ENCOUNTER 2019-07-01 14:13 | Inpatient (IN) | payer MEDICARE, BC ==
[~2019-07-01] VITALS: Ht 167.6 cm; Wt 95.3 kg
[~2019-07-01 14:13] MED LIST changes: +AMIODARONE HCL200 MG PO; +COLACE100 MG PO; +HYDROCODON-ACE1 EAC7 PO; +JARDIANCE10 MG PO; +K-DUR20 MEQ PO
[2019-07-01 14:22] VITALS: BP 128/49; BMI 33.9
[2019-07-01 20:00] VITALS: BP 149/53
[2019-07-02 06:21] LABS: BASOPHILS 0.3 % (0-2); EOSINOPHILS 2.7 % (0-7); HEMATOCRIT 31.2 % (36.0-48.0); HEMOGLOBIN 9.8 g/dL (12-16); IMMATURE GRANULOCYTES 1.3 % (0-5); LYMPHOCYTES 20.8 % (15-50); MCH 30.3 pg (26.0-34.0); MCHC 31.4 g/dL (31.0-37.0); MCV 96.6 fL (80.0-100.0); MEAN PLATELET VOLUME 9.3 fL (7.4-10.4); MONOCYTES 7.6 % (2-11); NEUTROPHILS 67.3 % (40-80); RBC 3.23 10x6/uL (4.00-5.40); RDW 13.4 % (11.5-14.5)
[2019-07-02 06:47] LABS: PLATELET COUNT 531 10x3/uL (130-400)
[2019-07-02 06:49] LABS: ANION GAP 14.1 mmol/L (8-16); CALCIUM 9.2 mg/dL (8.5-10.1); CARBON DIOXIDE 26.9 mmol/L (21.0-32.0)
[2019-07-02 08:00] VITALS: BP 159/50
[2019-07-02 12:32] VITALS: Ht 167.6 cm; Wt 95.3 kg
[2019-07-02 21:05] VITALS: BP 123/32
[2019-07-03 08:25] VITALS: BP 130/60
[2019-07-03 19:10] VITALS: BP 115/58
[2019-07-04 08:02] VITALS: BP 145/43
[2019-07-04 19:00] VITALS: BP 104/53
[2019-07-05 07:22] LABS: BASOPHILS 0.2 % (0-2); EOSINOPHILS 1.3 % (0-7); HEMATOCRIT 30.4 % (36.0-48.0); HEMOGLOBIN 9.4 g/dL (12-16); IMMATURE GRANULOCYTES 1.2 % (0-5); LYMPHOCYTES 20.8 % (15-50); MCHC 30.9 g/dL (31.0-37.0); MCV 97.1 fL (80.0-100.0); MEAN PLATELET VOLUME 8.8 fL (7.4-10.4); MONOCYTES 7.2 % (2-11); NEUTROPHILS 69.3 % (40-80); PLATELET COUNT 581 10x3/uL (130-400); RBC 3.13 10x6/uL (4.00-5.40); RDW 13.3 % (11.5-14.5); WBC 9.3 10x3/uL (4.8-10.8)
[2019-07-05 07:29] LABS: ANION GAP 12.5 mmol/L (8-16); CALCIUM 9.1 mg/dL (8.5-10.1); CARBON DIOXIDE 27.2 mmol/L (21.0-32.0); POTASSIUM - SERUM 4.7 mmol/L (3.5-5.1)
[2019-07-05 08:14] VITALS: BP 131/56
[2019-07-05 21:00] VITALS: BP 138/55
[2019-07-06 08:21] VITALS: BP 127/46
[2019-07-06 21:05] VITALS: BP 185/72
[2019-07-07 07:04] LABS: BASOPHILS 0.2 % (0-2); EOSINOPHILS 1.4 % (0-7); HEMATOCRIT 29.1 % (36.0-48.0); IMMATURE GRANULOCYTES 0.7 % (0-5); LYMPHOCYTES 24.2 % (15-50); MCH 29.8 pg (26.0-34.0); MCHC 30.9 g/dL (31.0-37.0); MCV 96.4 fL (80.0-100.0); MONOCYTES 7.4 % (2-11); NEUTROPHILS 66.1 % (40-80); PLATELET COUNT 602 10x3/uL (130-400); RBC 3.02 10x6/uL (4.00-5.40); RDW 13.4 % (11.5-14.5); WBC 10.1 10x3/uL (4.8-10.8)
[2019-07-07 07:30] LABS: ANION GAP 13.9 mmol/L (8-16); CALCIUM 8.9 mg/dL (8.5-10.1); CARBON DIOXIDE 27.6 mmol/L (21.0-32.0); CREATININE - SERUM 1.1 mg/dL (0.6-1.3); POTASSIUM - SERUM 5.5 mmol/L (3.5-5.1)
[2019-07-07 08:16] VITALS: BP 138/62
[2019-07-07] MEDS ORDERED: COREG 3.1253.125 MG PO (08:49)
[2019-07-07] MEDS ORDERED: AMIODARONE HCL200 MG PO (08:49)
[2019-07-07] MEDS ORDERED: ULTRAM50 MG PO (08:50)
[2019-07-07] MEDS ORDERED: HYDROCODON-ACE1 EAC7 PO (08:50)
[2019-07-07] MEDS ORDERED: K-TAB10 MEQ PO (08:52)
== END 2019-07-07 12:04 | disposition home health service (06) | DRG 92 ==
LOC: D.REHAB 14:13
PROVIDERS: ADMIT Emergency Medicine; ATTEND Emergency Medicine
DX: G72.81 Critical illness myopathy (principal); J90 Pleural effusion, not elsewhere classified; J98.11 Atelectasis; D62 Acute posthemorrhagic anemia; I69.354 Hemiplegia and hemiparesis following cerebral infarction affecting left non-dominant side; R13.12 Dysphagia, oropharyngeal phase; E11.9 Type 2 diabetes mellitus without complications; I25.10 Atherosclerotic heart disease of native coronary artery without angina pectoris; E66.9 Obesity, unspecified; R53.81 Other malaise; R06.09 Other forms of dyspnea; I10 Essential (primary) hypertension; Z95.1 Presence of aortocoronary bypass graft; R53.1 Weakness; Z68.33 Body mass index [BMI] 33.0-33.9, adult